=== PATIENT | male | born 1940 | race Caucasian/White ===

== ENCOUNTER → 2018-11-05 11:44 | Outpatient (CLI) | payer MEDICARE, SELFPAY ==
[2018-11-05 12:38] LABS: Add Manual Diff / Slide Review NO; Basophils Absolute Auto 100 /uL (0-100); Basophils Percent Auto 1.5 % (0-2); Eosinophils Absolute Auto 700 /uL (0-450); Eosinophils Percent Auto 14.3 % (2-4); Hematocrit 40.9 % (41-53); Hemoglobin 13.7 g/dL (13.5-17.5); Lymphocytes Absolute Auto 1400 /uL (1100-4500); Lymphocytes Percent Auto 27.3 % (25-40); Mean Corpuscular HGB Conc 33.5 % (30-36); Mean Corpuscular Hemoglobin 31.4 PG (26-34); Mean Corpuscular Volume 93.7 fL (80-100); Monocytes Absolute Auto 500 /uL (0-900); Monocytes Percent Auto 9.7 % (3-14); Neutrophils Absolute Auto 2400 /uL (1500-7000); Neutrophils Percent Auto 47.2 % (50-75); Platelet Count 279 X10^3/uL (150-400); Red Blood Cell Count 4.37 X10^6/uL (4.5-5.9); Red Cell Distribution Width 13.1 % (11.6-14.8)
[2018-11-05 13:01] LABS: Erythrocyte Sedimentation Rate 19 MM/HR (0-15)
[2018-11-05 13:26] LABS: Alanine Aminotransferase 33 IU/L (21-72); Albumin 4.4 g/dL (3.5-5.0); Albumin Globulin Ratio 1.4 (1.0-2.8); Alkaline Phosphatase 44 U/L (38-126); Aspartate Aminotransferase 27 IU/L (17-59); BUN Creatinine Ratio 14.5 (6-22); Blood Urea Nitrogen 16 mg/dL (9-20); Calcium 9.8 mg/dL (8.4-10.2); Carbon Dioxide 24 mmol/L (22-32); Chloride 105 mmol/L (98-107); Cholesterol 199 mg/dL (140-199); Estimated Glomerular Filt Rate > 60.0 mL/min (>60); Globulin 3.2 g/dL (1.7-4.1); Glucose 97 mg/dL (80-110); HDL Cholesterol 48 mg/dL (40-60); HEMOLYSIS < 15 (0-50); LDL Cholesterol Calculated 126 mg/dL (<100); Lipase 274 U/L (23-300); Potassium 4.6 mmol/L (3.4-5.1); Sodium 139 mmol/L (137-145); Total Protein 7.6 g/dL (6.3-8.2); Triglycerides 124 mg/dL (35-150)
== END ==
PROVIDERS: PCP Internal Medicine; Visit Provider Internal Medicine
DX: R10.30 Lower abdominal pain, unspecified (principal); Z00.00 Encounter for general adult medical examination without abnormal findings
CPT/HCPCS: 36415; 80053; 80061; 83690; 85025; 85651

== ENCOUNTER 2019-01-14 07:19 | Day surgery (SDC) | payer MEDICARE, SELFPAY ==
--- NOTE | 2019-01-14 | PATH_ITS ---
[facility] Accession Number: [id number] . 01 Material submitted: . PART A: ASCENDING COLON PART B: TRANSVERSE COLON PART C: BIOPSY AT 40CM X3 . 02 Diagnosis: A. Ascending Colon, Biopsy: Tubular adenoma. . B. Transverse Colon, Biopsy: Tubular adenoma. . C. Colon, 40 cm x3, Biopsies: Tubular adenoma in two of six fragments. [facility]/01/16/2019 . 02 Electronically signed: . Carissa Guerrero MD, Pathologist NPI- [id number] . 01 Gross description: . Part A: ASCENDING COLON: Received in formalin is 1 fragment(s) of duarte, soft tissue measuring 0.5 x 0.3 x 0.3 cm submitted entirely in 1 cassette(s) Part B: TRANSVERSE COLON: Received in formalin are multiple fragment(s) of duarte, soft tissue measuring 0.8 x 0.5 x 0.3 cm in aggregate submitted entirely in 1 cassette(s) Part C: BIOPSY AT 40CM X3: Received in formalin are multiple fragment(s) of duarte, soft tissue measuring 1.2 x 0.6 x 0.3 cm in aggregate submitted entirely in 1 cassette(s) /CKI /CKI . 02 Pathologist provided ICD-10: D12.2, D12.3, D12.6 . 02 CPT . 928820, [id number], [id number] Performed at: 01 [facility] [address] [place] [address], [place], [place] [id number] MD Fabricio Ferguson MD Phone: [phone] [facility]formed at: [facility] [address] [place], [place] [id number] MD Carissa Guerrero MD Phone: [phone]
[2019-01-14 07:35] VITALS: BP 126/75; PULSE 77; RESP 15; TEMP 36.6; O2SAT 98
[2019-01-14] MEDS: SODIUM CHLORIDE 0.9% 1,000 ML 100 ML IV (07:35)
[2019-01-14 07:36] VITALS: BMI 29.0
--- NOTE | 2019-01-14 08:08 | PM.HP.1 ---
History of Present Illness Date Patient Seen: 01/14/19 Time Patient Seen: 08:08 Chief complaint: [id number] Narrative: Patient is gentleman whose last colonoscopy was in 2000. He has had some change in his bowel habits. He is here for colonoscopy. Patient History Medical History Hypertension (Chronic) Surgical History History of nasal surgery (Resolved) History of prostate surgery (Resolved) Social History marital status: household members: spouse Smoking Status: Never smoker alcohol intake: never substance use type: does not use Family & Social History Social History: household members spouse Tobacco & Substance use: Smoking Status Never smoker alcohol intake never Meds Home Medications Medication Instructions Recorded Confirmed Type losartan 25 mg tablet 25 mg PO DAILY 12/17/18 01/14/19 History Allergies Allergy/AdvReac Type Severity Reaction Status Date / Time No Known Drug Allergies Allergy Verified 01/14/19 07:33 Review of Systems Review of Systems All systems reviewed & are unremarkable except as noted in HPI and below Exam Vital Signs (past 8 hours): - 01/14/19 07:35 Temperature 97.8 F Pulse Rate 77 Respiratory Rate 15 Blood Pressure 126/75 Pulse Oximetry 98 Oxygen Delivery Method Room Air Narrative Exam Narrative: Cooperative in no apparent distress. Lungs are clear. Heart regular rate and rhythm without murmur gallop abdomen is soft nontender without mass. Alert and oriented. Very hard of hearing. Assessment & Plan Assessment & Plan narrative: For screening colonoscopy. I have discussed procedure rationale with him. Risks of bleeding perforation discussed with him. He appeared to understand wishes to proceed
--- NOTE | 2019-01-14 08:12 | PM.PREOP ---
Pre-operative Note Interval Note History & Physical reviewed/Exam performed by Physician: Yes Changes to H&P: No ASA Class (for procedural sedation): II
[2019-01-14] MEDS: fentaNYL 250 MCG/5 ML INJ IV (08:13)
[2019-01-14] MEDS: MIDAZOLAM 5 MG/5 ML VIAL IV (08:14)
[2019-01-14 08:58] VITALS: BP 112/67; PULSE 64; RESP 16; TEMP 36.4; O2SAT 98
--- NOTE | 2019-01-14 08:58 | PM.OP.ENDO ---
Operative Date/Time/Diagnoses Date of procedure: 01/14/19 Time of procedure: 08:58 Pre-op diagnosis: Change in bowel habits. Screening exam. Last exam 2000. Post-op diagnosis: same (Multiple small polyps.) Procedure & Clinicians Study performed: Colonoscopy with cold biopsy Same procedure as scheduled: Yes Indications: Screening Surgeon: Devin Melgar Procedure Notes SCOAP/Timeout: Performed Procedure in detail: The patient was placed in the left lateral decubitus position and underwent IV sedation directed by the surgeon consisting of fentanyl and Versed. Digital exam was remarkable for increased sphincter tone.. The scope was inserted and advanced through the rectum into the sigmoid, descending, transverse, and ascending colon. There were large number of diverticula noted in the sigmoid colon with some mild stricture in tortuosity. The cecum was reached identified by the ileocecal valve and the appendiceal opening. The ileocecal valve was successfully cannulated. The terminal ileum was normal in appearance. The scope was gradually brought out. Polyps were found at the ascending colon, the transverse colon, and 3 polyps were found at the region around 40 cm. The scope ultimately was retroflexed in the rectum. The appearance was normal except for perhaps some very mild proctitis.. The scope was removed and the patient tolerated the procedure well. Prep was excellent. Scope withdrawal time: 13 min Sedation minutes: 24 Findings: diverticulosis (Sigmoid) and polyp (Multiple) Specimen(s): other (Polyps) Complications: none Recommendations: Colonscopy in 5 years (If in good health) Follow up: as needed Disposition: PACU
[2019-01-14 09:03] VITALS: BP 118/72; PULSE 69; RESP 21; O2SAT 98
[2019-01-14 09:10] VITALS: BP 106/71; PULSE 67; RESP 11; O2SAT 95
[2019-01-14 09:15] VITALS: BP 105/72; PULSE 68; RESP 13; TEMP 36.4; O2SAT 96
[2019-01-14 09:50] VITALS: BP 108/70; PULSE 63; RESP 15; TEMP 36.3; O2SAT 95
== END 2019-01-14 09:54 | disposition home or self-care (01) ==
PROVIDERS: PCP Internal Medicine; Visit Provider Specialist
PROC: 0DJD8ZZ Inspection of Lower Intestinal Tract, Via Natural or Artificial Opening Endoscopic (ICD-10-PCS; CPT 45378; principal; 2019-01-14 07:45)
DX: K57.30 Diverticulosis of large intestine without perforation or abscess without bleeding (principal); I10 Essential (primary) hypertension; D12.2 Benign neoplasm of ascending colon; D12.3 Benign neoplasm of transverse colon; D12.6 Benign neoplasm of colon, unspecified
CPT/HCPCS: 45380; 88305; 99152; 99153; J2250; J3010

== ENCOUNTER → 2019-06-02 12:16 | Outpatient (CLI) | payer MEDICARE, SELFPAY | PROVIDERS: PCP Internal Medicine; Visit Provider Internal Medicine | DX: K52.9 Noninfective gastroenteritis and colitis, unspecified (principal) | CPT/HCPCS: 36415; 87045; 87046; 87147; 87177; 87205; 87329; 87899 ==

== ENCOUNTER 2022-06-05 15:19 | Inpatient (IN) | payer MEDICARE, SELFPAY ==
[2022-06-05] VITALS (20 sets, daily range): BP systolic 148–204; BP diastolic 71–104; PULSE 68–88; RESP 12–22; TEMP 36.6–36.9; O2SAT 96–99; BMI 29.2
--- NOTE | 2022-06-05 15:46 | ED.CHESTPAIN ---
HPI - Chest Pain <Danica Duarte DO - Last Filed: 06/05/22 19:05> General Chief Complaint: Chest Pain Stated Complaint: sob/chest pain Time Seen by Provider: 06/05/22 15:33 Source: patient Mode of arrival: Ambulatory Limitations: no limitations History of Present Illness HPI narrative: Patient is a 81-year-old male presents with his chest discomfort. He says since he got his booster COVID vaccine is a few months ago he has had some chest discomfort with activity. He says it has happened to him about 5 different times always resolves with rest. Today he in his grandson were caring a piece of plywood up the stairs he felt some chest heaviness it kind of goes into his jaw. He has to stop and rest and it goes away. He otherwise has no shortness of breath. He has no known coronary artery disease but does have hypertension. Related Data Home Medications Medication Instructions Recorded Confirmed losartan 50 mg tablet 50 mg PO DAILY 06/05/22 06/05/22 Allergies Allergy/AdvReac Type Severity Reaction Status Date / Time No Known Drug Allergies Allergy Verified 06/05/22 15:46 Review of Systems <Danica Duarte DO - Last Filed: 06/05/22 19:05> Review of Systems Narrative: GENERAL: Denies chills, fatigue, malaise, fever, sweats, travel HEENT: Denies sinus pain, ear pain, sore throat, difficulty swallowing, neck pain RESPIRATORY: Denies dyspnea, cough, wheezing, hemoptysis, sputum. CARDIOVASCULAR: Denies chest pain, palpitations, orthopnea, edema GASTROINTESTINAL: Denies nausea, vomiting, abdominal pain, diarrhea, constipation, melena. : Denies dysuria, frequency, incontinence, hematuria, urinary retention, flank pain. MUSCULOSKELETAL: Denies weakness, joint pain, or bony pain SKIN: No rash, no erythema, no pruritus NEUROLOGIC: Denies weakness, dizziness, headache, numbness, change in speech, confusion PSYCHIATRIC: No concerning psychosocial issues. 12 point review of systems is negative except for those stated above and HPI Patient History <Danica Duarte DO - Last Filed: 06/05/22 19:05> Medical History History of prostate cancer Hypertension Overweight (BMI 25.0-29.9) Surgical History History of nasal surgery History of prostate surgery Family History (Reviewed 06/05/22 @ 21:21 by [facility]) Mother Overdose Father Aortic aneurysm and dissection Social History marital status: household members: spouse Smoking Status: Former smoker alcohol intake: never substance use type: does not use Smoking Status: Former smoker alcohol intake frequency: 0-2 drinks per day Substance Use Type: does not use Exam <Danica uDarte DO - Last Filed: 06/05/22 19:05> Initial Vital Signs Initial Vital Signs: Vital Signs Temperature 98.4 F 06/05/22 15:25 Pulse Rate 77 06/05/22 15:25 Respiratory Rate 18 06/05/22 15:25 Blood Pressure 178/77 H 06/05/22 15:25 Pulse Oximetry 96 06/05/22 15:25 Oxygen Delivery Method 06/05/22 15:25 GENERAL: Alert very pleasant 81-year-old and in no acute distress. HEENT: Head atraumatic,EOMI, pupils reactive, face symmetric, moist mucous membranes CARDIOVASCULAR: Regular rate and rhythm without murmurs, rubs or gallops. RESPIRATORY: Breath sounds equal bilaterally, no wheezes rales or rhonchi. ABDOMEN: Soft, nontender. Normoactive bowel sounds all 4 quadrants. No guarding or rebound. EXTREMITIES: Normal range of motion, no clubbing or edema. Neurovascularly intact NEUROLOGICAL: Alert and oriented x4.Normal gait and speech. SKIN: Warm, dry, no laceration, no petechiae, no rashes or lesions. <Tiff Santoyo DO - Last Filed: 06/06/22 01:21> Initial Vital Signs Initial Vital Signs: Vital Signs Temperature 98.4 F 06/05/22 15:25 Pulse Rate 77 06/05/22 15:25 Respiratory Rate 18 06/05/22 15:25 Blood Pressure 178/77 H 06/05/22 15:25 Pulse Oximetry 96 06/05/22 15:25 Oxygen Delivery Method 06/05/22 15:25 Scores <DO Krysten Ahn Last Filed: 06/05/22 19:05> HEART Score Heart Score history: Highly Suspicious Heart Score EKG: Normal Heart Score Age: > or = 65 years old Heart Score risk factors: 1-2 risk factors Heart Score troponin: < or = to normal limit Heart Score Total: 5 <Tiff Santyoo DO - Last Filed: 06/06/22 01:21> HEART Score Heart Score Total: 5 Course <Danica Duarte DO - Last Filed: 06/05/22 19:05> Orders Ordered: ED Orders 06/05/22 17:28 Trop I [Troponin I] Stat 06/05/22 18:25 COVID19 -Nasal RAPID/Pre-Proc Stat Acetaminophen (Acetaminophen 325 Mg Tablet) 650 mg PO Q6HR PRN PRN Reason: Fever/Mild Pain (1-3) Al Hydrox/Mg Hydrox/Simethicone (Mag Hydrox/Alum/Simeth 30 Ml Udc) 30 ml PO Q6HR PRN PRN Reason: Dyspepsia Aspirin (Aspirin Ec 325 Mg Tablet) 325 mg PO DAILY [facility] Atorvastatin Calcium (Atorvastatin 20 Mg Tablet) 40 mg PO BEDTIME [facility] Last Admin: 06/05/22 21:21 Dose: 40 mg Documented By: LINDSEY Enoxaparin Sodium (Enoxaparin 40 Mg/0.4 Ml Syringe) 40 mg SUBCUT DAILY [facility] Losartan Potassium (Losartan 25 Mg Tablet) 50 mg PO DAILY [facility] Morphine Sulfate (Morphine 2 Mg/Ml Inj) 2 mg IV Q5MIN PRN PRN Reason: Chest Pain Nitroglycerin (Nitroglycerin 0.4 Mg Sl Tab) 0.4 mg SL [id number] PRN PRN Reason: Chest Pain Ondansetron HCl (Ondansetron 4 Mg Odt) 4 mg PO Q8HR PRN PRN Reason: Nausea And Vomiting Sennosides (Sennosides 8.6 Mg Tablet) 17.2 mg PO BEDTIME [facility] Last Admin: 06/05/22 22:24 Dose: Not Given Documented By: LINDSEY Discontinued Medications Aspirin (Aspirin 81 Mg Chew Tab) 324 mg PO NOW ONE Stop: 06/05/22 18:09 Last Admin: 06/05/22 18:21 Dose: 324 mg Documented By: TRACY Losartan Potassium (Losartan 25 Mg Tablet) 25 mg PO DAILY [facility] Last Admin: 06/05/22 22:24 Dose: Not Given Documented By: LINDSEY Metoprolol Tartrate (Metoprolol Tartrate 5 Mg/5 Ml Inj) 5 mg IV Q5M [facility] Stop: 06/05/22 20:11 Last Admin: 06/05/22 22:24 Dose: Not Given Documented By: Admin: 06/05/22 22:23 Dose: Not Given Documented By: Admin: 06/05/22 22:23 Dose: Not Given Documented By: Vital Signs Vital signs: Vital Signs - 8 hr 06/05/22 17:30 06/05/22 17:30 06/05/22 18:00 Pulse Rate 77 Respiratory Rate 12 Blood Pressure 183/84 H 204/94 H Pulse Oximetry 99 06/05/22 18:00 06/05/22 18:18 06/05/22 18:18 Pulse Rate 82 87 Respiratory Rate 21 20 Blood Pressure 181/93 H Pulse Oximetry 98 98 06/05/22 18:30 06/05/22 18:30 Pulse Rate 82 Respiratory Rate 18 Blood Pressure 197/101 H Pulse Oximetry 97 <Tiff Santoyo, - Last Filed: 06/06/22 01:21> Orders Ordered: ED Orders 06/05/22 17:28 Trop I [Troponin I] Stat 06/05/22 18:25 COVID19 -Nasal RAPID/Pre-Proc Stat Acetaminophen (Acetaminophen 325 Mg Tablet) 650 mg PO Q6HR PRN PRN Reason: Fever/Mild Pain (1-3) Al Hydrox/Mg Hydrox/Simethicone (Mag Hydrox/Alum/Simeth 30 Ml Udc) 30 ml PO Q6HR PRN PRN Reason: Dyspepsia Aspirin (Aspirin Ec 325 Mg Tablet) 325 mg PO DAILY [facility] Atorvastatin Calcium (Atorvastatin 20 Mg Tablet) 40 mg PO BEDTIME [facility] Last Admin: 06/05/22 21:21 Dose: 40 mg Documented By: Enoxaparin Sodium (Enoxaparin 40 Mg/0.4 Ml Syringe) 40 mg SUBCUT DAILY [facility] Losartan Potassium (Losartan 25 Mg Tablet) 50 mg PO DAILY [facility] Morphine Sulfate (Morphine 2 Mg/Ml Inj) 2 mg IV Q5MIN PRN PRN Reason: Chest Pain Nitroglycerin (Nitroglycerin 0.4 Mg Sl Tab) 0.4 mg SL [id number] PRN PRN Reason: Chest Pain Ondansetron HCl (Ondansetron 4 Mg Odt) 4 mg PO Q8HR PRN PRN Reason: Nausea And Vomiting Sennosides (Sennosides 8.6 Mg Tablet) 17.2 mg PO BEDTIME [facility] Last Admin: 06/05/22 22:24 Dose: Not Given Documented By: LINDSEY Discontinued Medications Aspirin (Aspirin 81 Mg Chew Tab) 324 mg PO NOW ONE Stop: 06/05/22 18:09 Last Admin: 06/05/22 18:21 Dose: 324 mg Documented By: TRACY Losartan Potassium (Losartan 25 Mg Tablet) 25 mg PO DAILY [facility] Last Admin: 06/05/22 22:24 Dose: Not Given Documented By: Metoprolol Tartrate (Metoprolol Tartrate 5 Mg/5 Ml Inj) 5 mg IV Q5M [facility] Stop: 06/05/22 20:11 Last Admin: 06/05/22 22:24 Dose: Not Given Documented By: Admin: 06/05/22 22:23 Dose: Not Given Documented By: Admin: 06/05/22 22:23 Dose: Not Given Documented By: LINDSEY Vital Signs Vital signs: Vital Signs - 8 hr 06/05/22 17:30 06/05/22 17:30 06/05/22 18:00 Pulse Rate 77 Respiratory Rate 12 Blood Pressure 183/84 H 204/94 H Pulse Oximetry 99 06/05/22 18:00 06/05/22 18:18 06/05/22 18:18 Pulse Rate 82 87 Respiratory Rate 21 20 Blood Pressure 181/93 H Pulse Oximetry 98 98 06/05/22 18:30 06/05/22 18:30 Pulse Rate 82 Respiratory Rate 18 Blood Pressure 197/101 H Pulse Oximetry 97 MDM - Chest Pain <Danica Duarte DO - Last Filed: 06/05/22 19:05> Lab Data Result diagrams: 06/05/22 15:31 06/05/22 15:31 Labs: Lab Results 06/05/22 06/05/22 06/05/22 Range/Units 15:31 15:31 15:31 WBC 6.2 (4.5-11.0) X10^3/uL RBC 3.92 L (4.5-5.9) X10^6/uL Hgb 12.8 L (13.5-17.5) g/dL Hct 36.5 L (41-53) % MCV 93.1 (80-100) fL MCH 32.6 (26-34) PG MCHC 35.0 (30-36) % RDW 13.3 (11.6-14.8) % Plt Count 217 (150-400) X10^3/uL Neut % (Auto) 65.8 (50-75) % Lymph % (Auto) 18.1 L (25-40) % [place] % (Auto) 8.1 (3-14) % Eos % (Auto) 7.0 H (2-4) % Baso % (Auto) 1.0 (0-2) % Neut # (Auto) 4100 (4138-5899) /uL Lymph # (Auto) 1100 (4644-9376) /uL [place] # (Auto) 500 (0-900) /uL Eos # (Auto) 400 (0-450) /uL Baso # (Auto) 100 (0-100) /uL Sodium 140 (137-145) mmol/L Potassium 4.5 (3.4-5.1) mmol/L Chloride 106 (98-107) mmol/L Carbon Dioxide 23 (22-32) mmol/L BUN 17 (9-20) mg/dL Creatinine 1.02 (0.66-1.25) mg/dL Estimated GFR > 60 (>60) mL/min BUN/Creatinine Ratio 16.7 (6-22) Glucose 101 (80-110) mg/dL Calcium 9.4 (8.4-10.2) mg/dL Magnesium 1.9 (1.6-2.3) mg/dL Total Bilirubin 0.6 (0.2-1.3) mg/dL AST 35 (17-59) IU/L ALT 19 (<50) IU/L Alkaline Phosphatase 40 (38-126) U/L Total Creatine Kinase 178 H (55-170) U/L CK-MB (CK-2) 2.31 (<2.37) ng/mL CK-MB (CK-2) Rel Index 1.3 L (1.5-5.0) % Troponin I 0.046 H (0.01-0.034) ng/mL NT-Pro-B Natriuret Pep (<450) pg/mL Total Protein 7.8 (6.3-8.2) g/dL Albumin 4.4 (3.5-5.0) g/dL Globulin 3.4 (1.7-4.1) g/dL Albumin/Globulin Ratio 1.3 (1.0-2.8) Lipase 110 (23-300) U/L SARS-CoV-2 (PCR) Negative (Negative) 06/05/22 06/05/22 06/05/22 Range/Units 15:31 17:28 18:25 WBC (4.5-11.0) X10^3/uL RBC (4.5-5.9) X10^6/uL Hgb (13.5-17.5) g/dL Hct (41-53) % MCV (80-100) fL MCH (26-34) PG MCHC (30-36) % RDW (11.6-14.8) % Plt Count (150-400) X10^3/uL Neut % (Auto) (50-75) % Lymph % (Auto) (25-40) % [place] % (Auto) (3-14) % Eos % (Auto) (2-4) % Baso % (Auto) (0-2) % Neut # (Auto) (8411-9722) /uL Lymph # (Auto) (3665-1633) /uL [place] # (Auto) (0-900) /uL Eos # (Auto) (0-450) /uL Baso # (Auto) (0-100) /uL Sodium (137-145) mmol/L Potassium (3.4-5.1) mmol/L Chloride (98-107) mmol/L Carbon Dioxide (22-32) mmol/L BUN (9-20) mg/dL Creatinine (0.66-1.25) mg/dL Estimated GFR (>60) mL/min BUN/Creatinine Ratio (6-22) Glucose (80-110) mg/dL Calcium (8.4-10.2) mg/dL Magnesium (1.6-2.3) mg/dL Total Bilirubin (0.2-1.3) mg/dL AST (17-59) IU/L ALT (<50) IU/L Alkaline Phosphatase (38-126) U/L Total Creatine Kinase (55-170) U/L CK-MB (CK-2) (<2.37) ng/mL CK-MB (CK-2) Rel Index (1.5-5.0) % Troponin I 0.075 H (0.01-0.034) ng/mL NT-Pro-B Natriuret Pep 716 H (<450) pg/mL Total Protein (6.3-8.2) g/dL Albumin (3.5-5.0) g/dL Globulin (1.7-4.1) g/dL Albumin/Globulin Ratio (1.0-2.8) Lipase (23-300) U/L SARS-CoV-2 (PCR) Negative (Negative) Imaging Data Chest x-ray: Radiologist's Impression: HILDA Dolan [id number] XRay Report Signed Patient: Tao Ledbetter MR#: [id number] : 1940 Acct:[id number] Age/Sex: 81 / M Date of Service: 06/05/22 Loc: ED Accession Number: [id number] ?? Procedure: XR chest 1V Ordering Provider: Danica Duarte D.O. PROCEDURE:? XR CHEST 1V ? INDICATIONS:? chest pain ? TECHNIQUE:? One view of the chest was acquired.? ? COMPARISON:? [facility], , CHEST 2 VIEW, 05/26/2009, 13:27. ? FINDINGS:? ? Surgical changes and devices:? None.? ? Lungs and pleura:? Lungs are clear.? No pleural effusions or pneumothorax.? Lung volumes are low ? Mediastinum:? Mediastinal contours appear normal.? Heart size is normal.? ? Bones and chest wall:? No suspicious bony lesions.? Overlying soft tissues appear unremarkable.? ? IMPRESSION:? No acute radiographic abnormality.? Lung volumes are low.? ? ? Dictated by: Aurelio Agarwal M.D. on 06/05/2022 at 16:08 ? ? Approved by: Aurelio Agarwal M.D. on 06/05/2022 at 16:08 ? ECG Data Interpretation: Normal sinus rhythm rate 80 p.r. interval 154 QRS [address] changes PVCs noted MDM Narrative Medical decision making narrative: Patient's symptoms are certainly concerning for cardiac. He is found to have rising indeterminate troponins. No EKG changes. He is not having any chest discomfort here in the emergency department. Dr. Bruno, Accepts patient. <Tiff Santoyo, DO - Last Filed: 06/06/22 01:21> Lab Data Labs: Lab Results 06/05/22 06/05/22 06/05/22 Range/Units 15:31 15:31 15:31 WBC 6.2 (4.5-11.0) X10^3/uL RBC 3.92 L (4.5-5.9) X10^6/uL Hgb 12.8 L (13.5-17.5) g/dL Hct 36.5 L (41-53) % MCV 93.1 (80-100) fL MCH 32.6 (26-34) PG MCHC 35.0 (30-36) % RDW 13.3 (11.6-14.8) % Plt Count 217 (150-400) X10^3/uL Neut % (Auto) 65.8 (50-75) % Lymph % (Auto) 18.1 L (25-40) % [place] % (Auto) 8.1 (3-14) % Eos % (Auto) 7.0 H (2-4) % Baso % (Auto) 1.0 (0-2) % Neut # (Auto) 4100 (9261-6425) /uL Lymph # (Auto) 1100 (3439-9062) /uL [place] # (Auto) 500 (0-900) /uL Eos # (Auto) 400 (0-450) /uL Baso # (Auto) 100 (0-100) /uL Sodium 140 (137-145) mmol/L Potassium 4.5 (3.4-5.1) mmol/L Chloride 106 (98-107) mmol/L Carbon Dioxide 23 (22-32) mmol/L BUN 17 (9-20) mg/dL Creatinine 1.02 (0.66-1.25) mg/dL Estimated GFR > 60 (>60) mL/min BUN/Creatinine Ratio 16.7 (6-22) Glucose 101 (80-110) mg/dL Calcium 9.4 (8.4-10.2) mg/dL Magnesium 1.9 (1.6-2.3) mg/dL Total Bilirubin 0.6 (0.2-1.3) mg/dL AST 35 (17-59) IU/L ALT 19 (<50) IU/L Alkaline Phosphatase 40 (38-126) U/L Total Creatine Kinase 178 H (55-170) U/L CK-MB (CK-2) 2.31 (<2.37) ng/mL CK-MB (CK-2) Rel Index 1.3 L (1.5-5.0) % Troponin I 0.046 H (0.01-0.034) ng/mL NT-Pro-B Natriuret Pep (<450) pg/mL Total Protein 7.8 (6.3-8.2) g/dL Albumin 4.4 (3.5-5.0) g/dL Globulin 3.4 (1.7-4.1) g/dL Albumin/Globulin Ratio 1.3 (1.0-2.8) Lipase 110 (23-300) U/L SARS-CoV-2 (PCR) Negative (Negative) 06/05/22 06/05/22 06/05/22 Range/Units 15:31 17:28 18:25 WBC (4.5-11.0) X10^3/uL RBC (4.5-5.9) X10^6/uL Hgb (13.5-17.5) g/dL Hct (41-53) % MCV (80-100) fL MCH (26-34) PG MCHC (30-36) % RDW (11.6-14.8) % Plt Count (150-400) X10^3/uL Neut % (Auto) (50-75) % Lymph % (Auto) (25-40) % [place] % (Auto) (3-14) % Eos % (Auto) (2-4) % Baso % (Auto) (0-2) % Neut # (Auto) (0135-6131) /uL Lymph # (Auto) (6057-0875) /uL [place] # (Auto) (0-900) /uL Eos # (Auto) (0-450) /uL Baso # (Auto) (0-100) /uL Sodium (137-145) mmol/L Potassium (3.4-5.1) mmol/L Chloride (98-107) mmol/L Carbon Dioxide (22-32) mmol/L BUN (9-20) mg/dL Creatinine (0.66-1.25) mg/dL Estimated GFR (>60) mL/min BUN/Creatinine Ratio (6-22) Glucose (80-110) mg/dL Calcium (8.4-10.2) mg/dL Magnesium (1.6-2.3) mg/dL Total Bilirubin (0.2-1.3) mg/dL AST (17-59) IU/L ALT (<50) IU/L Alkaline Phosphatase (38-126) U/L Total Creatine Kinase (55-170) U/L CK-MB (CK-2) (<2.37) ng/mL CK-MB (CK-2) Rel Index (1.5-5.0) % Troponin I 0.075 H (0.01-0.034) ng/mL NT-Pro-B Natriuret Pep 716 H (<450) pg/mL Total Protein (6.3-8.2) g/dL Albumin (3.5-5.0) g/dL Globulin (1.7-4.1) g/dL Albumin/Globulin Ratio (1.0-2.8) Lipase (23-300) U/L SARS-CoV-2 (PCR) Negative (Negative) Discharge Plan Departure Patient Disposition: Admitted as Observation Clinical Impression: Chest pain Admit Date/Time: 06/05/22 18:35 Admit Provider: Jarrett Bruno <Tiff Santoyo DO - Last Filed: 06/06/22 01:21> Sign Out Provider Sign Out Attestation: Patient was not seen by myself. Patient admitted to hospitalist.
--- NOTE | 2022-06-05 15:47 | DI.RAD.S_ITS ---
PROCEDURE: XR CHEST 1V INDICATIONS: chest pain TECHNIQUE: One view of the chest was acquired. COMPARISON: [facility], , CHEST 2 VIEW, 05/26/2009, 13:27. FINDINGS: Surgical changes and devices: None. Lungs and pleura: Lungs are clear. No pleural effusions or pneumothorax. Lung volumes are low Mediastinum: Mediastinal contours appear normal. Heart size is normal. Bones and chest wall: No suspicious bony lesions. Overlying soft tissues appear unremarkable. IMPRESSION: No acute radiographic abnormality. Lung volumes are low. Dictated by: Aurelio Agarwal M.D. on 06/05/2022 at 16:08 Approved by: Aurelio Agarwal M.D. on 06/05/2022 at 16:08
[2022-06-05 16:00] LABS: Add Manual Diff / Slide Review NO; Basophils Absolute Auto 100 /uL (0-100); Eosinophils Absolute Auto 400 /uL (0-450); Hematocrit 36.5 % (41-53); Hemoglobin 12.8 g/dL (13.5-17.5); Lymphocytes Absolute Auto 1100 /uL (1100-4500); Lymphocytes Percent Auto 18.1 % (25-40); Mean Corpuscular Hemoglobin 32.6 PG (26-34); Mean Corpuscular Volume 93.1 fL (80-100); Monocytes Absolute Auto 500 /uL (0-900); Monocytes Percent Auto 8.1 % (3-14); Neutrophils Absolute Auto 4100 /uL (1500-7000); Neutrophils Percent Auto 65.8 % (50-75); Platelet Count 217 X10^3/uL (150-400); Red Blood Cell Count 3.92 X10^6/uL (4.5-5.9); Red Cell Distribution Width 13.3 % (11.6-14.8); White Blood Cell Count 6.2 X10^3/uL (4.5-11.0)
[2022-06-05 16:07] LABS: Alanine Aminotransferase 19 IU/L (<50); Albumin 4.4 g/dL (3.5-5.0); Albumin Globulin Ratio 1.3 (1.0-2.8); Alkaline Phosphatase 40 U/L (38-126); Aspartate Aminotransferase 35 IU/L (17-59); BUN Creatinine Ratio 16.7 (6-22); Bilirubin Total 0.6 mg/dL (0.2-1.3); Blood Urea Nitrogen 17 mg/dL (9-20); Calcium 9.4 mg/dL (8.4-10.2); Carbon Dioxide 23 mmol/L (22-32); Chloride 106 mmol/L (98-107); Creatine Kinase 178 U/L (55-170); Estimated Glomerular Filt Rate > 60 mL/min (>60); Globulin 3.4 g/dL (1.7-4.1); Glucose 101 mg/dL (80-110); HEMOLYSIS 28 (0-50); Lipase 110 U/L (23-300); Magnesium 1.9 mg/dL (1.6-2.3); Potassium 4.5 mmol/L (3.4-5.1); Sodium 140 mmol/L (137-145); Total Protein 7.8 g/dL (6.3-8.2)
[2022-06-05 16:09] LABS: COVID19 -Nasal RAPID Negative (Negative)
[2022-06-05 16:18] LABS: Troponin I 0.046 ng/mL (0.01-0.034)
[2022-06-05 16:22] LABS: CKMB % Relative Index 1.3 % (1.5-5.0); Creatine Kinase MB 2.31 ng/mL (<2.37)
[2022-06-05 18:09] LABS: Troponin I 0.075 ng/mL (0.01-0.034)
[2022-06-05] MEDS: ASPIRIN 81 MG CHEW TAB 324 MG PO (18:21)
[2022-06-05 18:51] LABS: COVID19 -Nasal RAPID Negative (Negative)
--- NOTE | 2022-06-05 18:52 | PC.NURSE ---
Pt given sandwich, apple sauce and cheese.
--- NOTE | 2022-06-05 19:47 | DI.ECHO.S_ITS ---
[place] +---------+ [facility] +---------+ : : [address] : : : : [id number] : : : : Phone: [phone] Echocardiogram Report + + :Name: RADHA MOHAMUD Study Date: 06/06/2022 Height: 71 in : :[facility] ReadingLocation: Weight: 210 lb : : Gender: Male BSA: 2.2 m2 : :: 1940 Age: 81 yrs BP: 168/79 mmHg: :Reason For Study: CHEST PAIN, MYOCARDIAL INJURY : :Ordering Physician: URMILA, : :JACKIE Performed By: Nida Fall : :Referring: JACKIE KEARNS : + + Interpretation Summary The patient was in sinus rhythm with heart rates between 59-71 bpm during the exam. Hypertensive during exam The left ventricle is mildly dilated. There is mild global hypokinesis of the left ventricle. The ejection fraction is estimated to be 40-45%. Diastolic parameters suggest a relaxation abnormality of the left ventricle, consistent with probable normal filling pressures. The left atrium is mildly dilated. There is mild aortic regurgitation. There is mild mitral regurgitation. No prior study for comparison Procedure: A two-dimensional transthoracic echocardiogram with color flow and Doppler was performed. The study quality was technically adequate. There is no prior echocardiogram noted for this patient. The patient was in sinus rhythm with heart rates between 59-71 bpm during the exam. Hypertensive during exam. Left Ventricle: There is normal left ventricular wall thickness. The left ventricle is mildly dilated. The estimated left ventricular end diastolic volume is 132 ml. The ejection fraction is estimated to be 40-45%. There is mild global hypokinesis of the left ventricle. Diastolic parameters suggest a relaxation abnormality of the left ventricle, consistent with probable normal filling pressures. Right Ventricle: The right ventricle is normal in size and function. Atria: The left atrium is mildly dilated. Right atrial size is normal. There is no Doppler evidence for an interatrial shunt. Mitral Valve: The mitral valve leaflets appear mildly thickened, but open well. There is mild mitral regurgitation. Aortic Valve: The aortic valve is trileaflet. The aortic valve opens well. There is no aortic valve stenosis. There is mild aortic regurgitation. Tricuspid Valve: The tricuspid valve is normal in structure and function. There is mild tricuspid regurgitation. Pulmonic Valve: The pulmonic valve leaflets are thin and pliable; valve motion is normal. There is mild pulmonic regurgitation. Great Vessels: The aortic root is normal size. The dimensions of the ascending aorta are normal. The inferior vena cava was not visualized. Pericardium/ Pleura There is no pericardial effusion. There is no pleural effusion. MMode/2D Measurements & Calculations LVIDd: 6.0 cm LVOT diam: 2.2 cm LVIDs: 5.1 cm Ao root diam: 4.0 cm FS: 15.3 % asc Aorta Diam: 3.8 cm EPSS: 2.0 cm IVSd: 0.86 cm LVPWd: 0.88 cm LV stapleton. diameter/BSA (cm/m^2): 2.8 LV sys. diameter/BSA (cm/m^2): 2.4 LA A2 area: 22.9 cm2 RA long axis: 5.7 cm LA A4 area: 19.0 cm2 RA area: 15.7 cm2 LA length (vol): 4.9 cm RA vol: 37.0 ml LA vol: 75.9 ml RA : 17.2 ml/m2 LA vol index: 35.2 ml/m2 RVD1 (basal): 3.9 cm RVD2 (mid): 3.0 cm TAPSE: 1.9 cm Doppler Measurements & Calculations Ao V2 max: 98.7 cm/sec LVOT Max Masood: 67.4 cm/sec Ao V2 mean: 71.6 cm/sec LV V1 max P.8 mmHg Ao max P.9 mmHg LV V1 VTI: 16.3 cm Ao mean P.3 mmHg TRUNG(I,D): 2.7 cm2 Ao V2 VTI: 23.4 cm TRUNG(V,D): 2.6 cm2 sev ratio: 0.69 TRUNG indexed to BSA (cm^2/m^2): 1.2 MV E max masood: 67.1 cm/sec TR max masood: 229.6 cm/sec MV A max masood: 114.6 cm/sec TR max P.1 mmHg MV E/A: 0.59 PA V2 max: 76.3 cm/sec Med Peak E' Masood: 3.2 cm/sec PA V2 mean: 54.8 cm/sec E/E' med: 21.0 PA mean P.3 mmHg Lat Peak E' Masood: 4.7 cm/sec PA pr(Accel): 24.2 mmHg E/E' lat: 14.2 E/e' average: 17.6 MV dec time: 0.29 sec SV(LVOT): 62.5 ml Reading Physician:JARETT
[2022-06-05 20:55] LABS: NT-proBNP (BNP-Adult 18+) 716 pg/mL (<450)
--- NOTE | 2022-06-05 21:12 | PM.HP.1 ---
History of Present Illness History of Present Illness Date Patient Seen: 06/05/22 Time Patient Seen: 19:55 Chief complaint: sob/chest pain Narrative: Tao Krueger is a delightful 81-year-old male with a history of prostate cancer over 20 years ago, hypertension and overweight who presented to the ED complaining of chest discomfort.? Which he reports began following getting his booster COVID vaccine in late February. The patient reports the chest discomfort is a steady dull ache that is brought on with activity can radiate up to his jaw experiences some mild nausea with no shortness of breath no diaphoresis, numbness, tingling, changes in vision, headache, and resolves with rest. This chest discomfort has been consistently occurring any time he has been doing physical labor, which he has been working on his house going up and down ladders doing yd work very vigorous activity for himself. He has no known coronary artery disease or pulmonary disease. Patient takes only losartan for hypertension, has never had any cardiac workup or evaluation. Patient denies recent illness injury or trauma, falls, fever, body aches, chills, nausea, vomiting, diarrhea, abdominal pain, swelling of feet hands or legs, balance or coordination issues. Patient is resting comfortably in bed, faughter at bedside, is quite alert on orientated converses easily and in no distress and no symptoms at the time of admit. Patient's admitting vitals temp 98.4?, was slightly hypertensive in the ED 204/94, in room 168/79, HR 82, R 21, O2 saturation 98% on room air. Patient's hemoglobin 12.8, hematocrit 36.5, the rest of the patient's chemistry and liver panels are unremarkable, total creatinine kinase 178, CK-MB RI 1.3, patient's initial troponin 0.046, 2nd troponin 0.075. Patient had a heart score of 5, patient's chest x-ray demonstrated no acute cardiopulmonary processes, patient's EKG NSR at a rate of [address] changes occasional PVCs noted. Patient admitted for chest pain, myocardial injury, hypertensive urgency. Patient History Medical History History of prostate cancer Hypertension Overweight (BMI 25.0-29.9) Surgical History (Reviewed 06/05/22 @ 21:20 by [facility] History of nasal surgery History of prostate surgery Family & Social History Family History Mother Overdose Father Aortic aneurysm and dissection Social History: household members spouse Prior Living Arrangements House Safety & Behavioral: Feels Safe in Current Yes Environment Been Physically Hurt or No Threatened By a Person Tobacco & Substance use: Tobacco type cigarettes Smoking Status Former smoker -patient smoked for 20 years and quit in 1982 alcohol intake never alcohol intake frequency patient quit drinking 54 years ago Substance Use Type does not use Meds Home Medications and Allergies Home Medications Medication Instructions Recorded Confirmed Type losartan 50 mg tablet 50 mg PO DAILY 06/05/22 06/05/22 History Allergies Allergy/AdvReac Type Severity Reaction Status Date / Time No Known Drug Allergies Allergy Verified 06/05/22 15:46 Review of Systems Review of Systems Narrative: All 12 point systems reviewed with the patient and are negative except otherwise documented. Exam Vital Signs (past 8 hours): - 06/05/22 15:25 06/05/22 15:25 06/05/22 15:27 Temperature 98.4 F Pulse Rate 77 84 81 Respiratory Rate 18 21 Blood Pressure 178/77 H Pulse Oximetry 96 96 Oxygen Delivery Method Room Air Oxygen Flow Rate 06/05/22 15:27 06/05/22 15:30 06/05/22 15:36 Temperature Pulse Rate 78 77 Respiratory Rate 15 18 Blood Pressure 178/77 H Pulse Oximetry 97 96 Oxygen Delivery Method Oxygen Flow Rate 06/05/22 15:36 06/05/22 16:00 06/05/22 16:01 Temperature Pulse Rate 76 78 Respiratory Rate 22 17 Blood Pressure 148/87 H Pulse Oximetry 97 97 Oxygen Delivery Method Oxygen Flow Rate 06/05/22 16:01 06/05/22 16:30 06/05/22 16:31 Temperature Pulse Rate 78 76 Respiratory Rate 22 18 Blood Pressure 181/71 H Pulse Oximetry 96 97 Oxygen Delivery Method Oxygen Flow Rate 06/05/22 16:31 06/05/22 17:00 06/05/22 17:01 Temperature Pulse Rate 77 77 Respiratory Rate 15 22 Blood Pressure 180/79 H Pulse Oximetry 98 98 Oxygen Delivery Method Oxygen Flow Rate 06/05/22 17:01 06/05/22 17:30 06/05/22 17:30 Temperature Pulse Rate 77 Respiratory Rate 12 Blood Pressure 176/104 H 183/84 H Pulse Oximetry 99 Oxygen Delivery Method Oxygen Flow Rate 06/05/22 18:00 06/05/22 18:00 06/05/22 18:18 Temperature Pulse Rate 82 87 Respiratory Rate 21 20 Blood Pressure 204/94 H Pulse Oximetry 98 98 Oxygen Delivery Method Oxygen Flow Rate 06/05/22 18:18 06/05/22 18:30 06/05/22 18:30 Temperature Pulse Rate 82 Respiratory Rate 18 Blood Pressure 181/93 H 197/101 H Pulse Oximetry 97 Oxygen Delivery Method Oxygen Flow Rate 06/05/22 19:00 06/05/22 19:00 06/05/22 19:30 Temperature Pulse Rate 81 88 Respiratory Rate 19 21 Blood Pressure 197/93 H Pulse Oximetry 97 97 Oxygen Delivery Method Oxygen Flow Rate 06/05/22 19:31 06/05/22 19:31 06/05/22 19:45 Temperature 98.5 F 97.9 F Pulse Rate 88 68 Respiratory Rate 18 18 Blood Pressure 181/87 H 168/79 H Pulse Oximetry 97 97 Oxygen Delivery Method Oxygen Flow Rate 0 Oxygen Delivery Method Room Air Oxygen Flow Rate 0 Narrative Exam Narrative: General: Patient is a well-developed, well-nourished young appearing 81 year old male, in no distress at this time. HEENT: Normocephalic, atraumatic, extraocular muscles intact, oral pharynx is clear and mucous membranes are moist. Neck is supple and symmetric, trachea is midline, no adenopathy, no thyroid enlargement, nontender, no masses palpated. Negative for JVD Chest: Normal AP diameter and contour without kyphoscoliosis, no nasal flaring, retractions, or tachypneic labored Lungs: Auscultation of all lung grubbs are clear without adventitious sounds, wheezes, rhonchi, or rales. Cardio: S1 & S2 with regular rate and rhythm without murmur, rubs, or gallops, no carotid bruit, no cardiac pulsations present. Abdomen: Soft nontender, negative for organomegaly, or masses. Bowel sounds are present in all 4 quadrants without guarding or rebound, no CVA tenderness. Musculoskeletal: Muscle strength and tone are equal within normal limits, no deformity, crepitus, effusions, cyanosis, clubbing or edema present. Full range of motion intact radial and pedal pulses are normal. Skin: Warm dry and intact without rashes, ulcerations or petechiae. Left hand DIP joint index finger digital myxoid cyst Neuro: Alert and orientated x3, strength is +5/5 in all extremities, sensation to touch intact, no gross deficits noted of cranial nerves. Psych: Patient has a well-kept appearance, appropriate affect, mental status attitude thought context and judgment are appropriate for age. Objective Labs Result Diagrams: 06/05/22 15:31 06/05/22 15:31 Labs: Laboratory Results - last 24 hr 06/05/22 06/05/22 06/05/22 15:31 15:31 15:31 WBC 6.2 RBC 3.92 L Hgb 12.8 L Hct 36.5 L MCV 93.1 MCH 32.6 MCHC 35.0 RDW 13.3 Plt Count 217 Neut % (Auto) 65.8 Lymph % (Auto) 18.1 L [place] % (Auto) 8.1 Eos % (Auto) 7.0 H Baso % (Auto) 1.0 Neut # (Auto) 4100 Lymph # (Auto) 1100 [place] # (Auto) 500 Eos # (Auto) 400 Baso # (Auto) 100 Sodium 140 Potassium 4.5 Chloride 106 Carbon Dioxide 23 BUN 17 Creatinine 1.02 Estimated GFR > 60 BUN/Creatinine Ratio 16.7 Glucose 101 Calcium 9.4 Magnesium 1.9 Total Bilirubin 0.6 AST 35 ALT 19 Alkaline Phosphatase 40 Total Creatine Kinase 178 H CK-MB (CK-2) 2.31 CK-MB (CK-2) Rel Index 1.3 L Troponin I 0.046 H NT-Pro-B Natriuret Pep Total Protein 7.8 Albumin 4.4 Globulin 3.4 Albumin/Globulin Ratio 1.3 Lipase 110 SARS-CoV-2 (PCR) Negative 06/05/22 06/05/22 06/05/22 15:31 17:28 18:25 WBC RBC Hgb Hct MCV MCH MCHC RDW Plt Count Neut % (Auto) Lymph % (Auto) [place] % (Auto) Eos % (Auto) Baso % (Auto) Neut # (Auto) Lymph # (Auto) [place] # (Auto) Eos # (Auto) Baso # (Auto) Sodium Potassium Chloride Carbon Dioxide BUN Creatinine Estimated GFR BUN/Creatinine Ratio Glucose Calcium Magnesium Total Bilirubin AST ALT Alkaline Phosphatase Total Creatine Kinase CK-MB (CK-2) CK-MB (CK-2) Rel Index Troponin I 0.075 H NT-Pro-B Natriuret Pep 716 H Total Protein Albumin Globulin Albumin/Globulin Ratio Lipase SARS-CoV-2 (PCR) Negative Assessment & Plan Assessment & Plan narrative: Tao Krueger is a delightful 81-year-old male with a history of prostate cancer over 20 years ago, hypertension and overweight who is being admitted for chest pain, myocardial injury, and hypertensive urgency, for echo, stress test, and risk stratification. 1. Chest pain, with activity, acute, with myocardial injury, acute, present on admission -patient's chest pain is brought on with physical activity and relieved with rest does radiate into the jaw, patient is stable and asymptomatic at this time. - troponin 1. 0.046, 2. 0.075-will trend troponins overnight -heart score 5 -EKG NSR rate of [address] or T-wave changes occasional PVCs noted -echo, stress test, BNP ordered -aspirin, Lipitor -telemetry, CP protocol nitrates & MS for CP 2. Essential hypertension with hypertensive urgency, acute on chronic, present on admission -presenting blood pressure is 204/94, 181/93, 197/101-upon admit 168/79 -Continue Losarten 50mg daily 3. Overweight as evidence by BMI of 29.4, acute on chronic, present on admission -dietary consult placed for nutritional counseling diet lifestyle and weight loss Code status:DNR -per patient Surrogate decision maker: Spouse Sherri Ledbetter COVID PCR: Negative COVID vaccination: Fully vaccinated DVT/VTE prophylaxis: Lovenox and SCDs Disposition: Patient admitted for observation, stress and echo in the morning trend troponins expected length of stay less than 2 midnights. I have utilized all available immediate resources to obtain, update, or review the patient's current medications. I confirmed that the patient's advanced care plan is present, Code status is documented and/or surrogate decision maker is listed in the patient's medical record. Time Spent With Patient Critical Care time: I spent a total of [] minutes of critical care time on this patient's care today; this time is exclusive of procedural time. Scores GCS Hillister coma scale eye opening: Spontaneous Hillister coma scale verbal response: Orientated Julianne coma scale motor response: Obey commands Julianne coma scale total score: 15 Quality VTE Deep Vein Thrombosis/Pulmonary Embolism Present on Admission: No
[2022-06-05] MEDS: ATORVASTATIN 20 MG TABLET 40 MG PO (21:21)
[2022-06-05 22:36] LABS: D Dimer < 500 ng/ml (<500)
[2022-06-06] VITALS (9 sets, daily range): BP systolic 111–175; BP diastolic 44–96; PULSE 64–80; RESP 16–18; TEMP 36.1–36.7; O2SAT 93–97
[2022-06-06 00:05] LABS: Troponin I 0.062 ng/mL (0.01-0.034)
--- NOTE | 2022-06-06 05:00 | PC.NURSE ---
Patient arrived to AC unit at 19:52 via wheelchair, daughter present. Alert and oriented x 4, able to make needs known to staff. Bed in low position and brakes are locked. Patient shown how to use call light and call light is within reach. Patient had sandwich shortly after arrival. Denies chest pain, shortness of breath, or pain of any kind. NPO at this time. Tele #4 placed on patient, ICU nurse aware.
[2022-06-06 05:16] LABS: Prothrombin Time 11.7 SECONDS (10.1-12.7)
[2022-06-06 05:17] LABS: Add Manual Diff / Slide Review NO; Basophils Absolute Auto 100 /uL (0-100); Basophils Percent Auto 1.1 % (0-2); Eosinophils Absolute Auto 500 /uL (0-450); Eosinophils Percent Auto 9.6 % (2-4); Hematocrit 36.3 % (41-53); Hemoglobin 12.6 g/dL (13.5-17.5); Lymphocytes Absolute Auto 1700 /uL (1100-4500); Lymphocytes Percent Auto 31.5 % (25-40); Mean Corpuscular HGB Conc 34.8 % (30-36); Mean Corpuscular Hemoglobin 32.2 PG (26-34); Mean Corpuscular Volume 92.6 fL (80-100); Monocytes Absolute Auto 500 /uL (0-900); Monocytes Percent Auto 9.8 % (3-14); Neutrophils Absolute Auto 2600 /uL (1500-7000); Platelet Count 203 X10^3/uL (150-400); Red Blood Cell Count 3.92 X10^6/uL (4.5-5.9); Red Cell Distribution Width 13.4 % (11.6-14.8); White Blood Cell Count 5.5 X10^3/uL (4.5-11.0)
[2022-06-06 05:19] LABS: PTT Partial Thromboplastin Tim 31 SECONDS (26-36)
[2022-06-06 05:42] LABS: Blood Urea Nitrogen 16 mg/dL (9-20); Calcium 9.2 mg/dL (8.4-10.2); Carbon Dioxide 25 mmol/L (22-32); Chloride 104 mmol/L (98-107); Cholesterol 174 mg/dL (140-199); Estimated Glomerular Filt Rate > 60 mL/min (>60); Glucose 96 mg/dL (80-110); HDL Cholesterol 53 mg/dL (40-60); HEMOLYSIS < 15 (0-50); LDL Cholesterol Calculated 103 mg/dL (<100); Potassium 4.2 mmol/L (3.4-5.1); Sodium 137 mmol/L (137-145); Triglycerides 88 mg/dL (35-150)
[2022-06-06 05:52] LABS: Troponin I 0.051 ng/mL (0.01-0.034)
[2022-06-06] MEDS: ENOXAPARIN 40 MG/0.4 ML SYRINGE SUBCUT (08:31)
[2022-06-06] MEDS: ASPIRIN EC 325 MG TABLET PO (08:31)
--- NOTE | 2022-06-06 08:56 | PC.NURSE ---
Pt denies chest pain at this time. Pt is KLAMATH with hearing aids in.
--- NOTE | 2022-06-06 09:03 | CM.DANOTE ---
DCP: Case received, EMR reviewed and met with patient. Introduced self and role. Was able to obtain information regarding patient's baseline activity status at home prior to hospitalization. DCP assessment completed with information currently available. Patient is a 81 year old male who admitted yesterday afternoon to the care of the hospitalist team. PCP: Dr. Montelongo. Payer: confirmed: Medicare/[employer]. Patient came to the hospital via private vehicle secondary to having chest pain. According to notes, patient was with his grandson and carrying some plywood up the stairs, and started to feel some chest pressure. Patient is here for cardiac work up, including echo and stress test. Met with patient in his room. He is alert and oriented, and was laying in bed. Confirmed with patient that he resides here in [place] with his spouse, Sherri. Confirmed that he is independent at baseline, and drives. Also confirmed that Dr. Montelongo is his primary care provider, but he stated, has not seen him for a while. P: DCP to continue to follow. Plan is for patient to go home when he is deemed medically stable. Elisha Gil RN/Car Repairer Apprentice Discharge Planning/Care Management Advanced directive, confirm from FAMILY Start: 06/05/22 20:00 Freq: Q24H Status: Active Protocol: Document 06/05/22 20:00 (Rec: 06/06/22 03:12 [id number]) Advance Directive, confirm on record Time 23:30 Person contacted patient Copy received No CM Discharge Assessment Start: 06/06/22 09:02 Freq: Status: Active Protocol: Document 06/06/22 09:02 (Rec: 06/06/22 09:03 [id number]) Discharge Planning Assessment Assigned Cattle Sorter Elisha Gil RN/Car Repairer Apprentice Advance Directives? Yes Advance Directives on File No History Provided By Patient,Medical Record Prior Living Arrangements House Household Members spouse Type of transporation used prior to Drives own vehicle admit Independent with ADL's Yes Is patient alert and oriented? Yes Caregiver for Another No Barriers to Discharge No Discharge Plan Home Transportation Arrangement Spouse Referrals Initiated None needed Whiteboard Updated in Patient Room with Yes name and ext. # of Cattle Sorter Review Status In Process Next Review Type Continued Stay Review
[2022-06-06] MEDS: LOSARTAN 25 MG TABLET 50 MG PO (13:04)
--- NOTE | 2022-06-06 14:44 | P.PN_ITS ---
Subjective Subjective Date Patient Seen: 06/06/22 Time Patient Seen: 08:00 Interval history: He has no complaints today. No chest pain or shortness of breath. Ordered for stress test and per staff this will not be done today. Exam Vital Signs (past 8 hours): - 06/06/22 08:20 06/06/22 08:43 06/06/22 12:00 Temperature 97.7 F 97.5 F L Pulse Rate 65 65 Respiratory Rate 16 16 Blood Pressure 151/74 H 157/96 H Pulse Oximetry 95 96 Oxygen Delivery Method Room Air 06/06/22 13:04 06/06/22 13:11 Temperature Pulse Rate 64 Respiratory Rate Blood Pressure 175/84 H Pulse Oximetry 96 Oxygen Delivery Method Room Air Oxygen Delivery Method Room Air Oxygen Flow Rate 0 Narrative Exam Narrative: GEN: no acute distress, hard of hearing PULM: clear bilaterally CV: regular rate and rhythm, no murmurs EXT: warm and well perfused with no edema Objective Labs Result Diagrams: 06/06/22 04:50 06/06/22 04:50 Labs: Laboratory Results - last 24 hr 06/05/22 06/05/22 06/05/22 15:31 15:31 15:31 WBC 6.2 RBC 3.92 L Hgb 12.8 L Hct 36.5 L MCV 93.1 MCH 32.6 MCHC 35.0 RDW 13.3 Plt Count 217 Neut % (Auto) 65.8 Lymph % (Auto) 18.1 L [place] % (Auto) 8.1 Eos % (Auto) 7.0 H Baso % (Auto) 1.0 Neut # (Auto) 4100 Lymph # (Auto) 1100 [place] # (Auto) 500 Eos # (Auto) 400 Baso # (Auto) 100 PT INR APTT D-Dimer Sodium 140 Potassium 4.5 Chloride 106 Carbon Dioxide 23 BUN 17 Creatinine 1.02 Estimated GFR > 60 BUN/Creatinine Ratio 16.7 Glucose 101 Calcium 9.4 Magnesium 1.9 Total Bilirubin 0.6 AST 35 ALT 19 Alkaline Phosphatase 40 Total Creatine Kinase 178 H CK-MB (CK-2) 2.31 CK-MB (CK-2) Rel Index 1.3 L Troponin I 0.046 H NT-Pro-B Natriuret Pep Total Protein 7.8 Albumin 4.4 Globulin 3.4 Albumin/Globulin Ratio 1.3 Triglycerides Cholesterol LDL Cholesterol, Calc HDL Cholesterol Lipase 110 SARS-CoV-2 (PCR) Negative 06/05/22 06/05/22 06/05/22 15:31 17:28 18:25 WBC RBC Hgb Hct MCV MCH MCHC RDW Plt Count Neut % (Auto) Lymph % (Auto) [place] % (Auto) Eos % (Auto) Baso % (Auto) Neut # (Auto) Lymph # (Auto) [place] # (Auto) Eos # (Auto) Baso # (Auto) PT INR APTT D-Dimer Sodium Potassium Chloride Carbon Dioxide BUN Creatinine Estimated GFR BUN/Creatinine Ratio Glucose Calcium Magnesium Total Bilirubin AST ALT Alkaline Phosphatase Total Creatine Kinase CK-MB (CK-2) CK-MB (CK-2) Rel Index Troponin I 0.075 H NT-Pro-B Natriuret Pep 716 H Total Protein Albumin Globulin Albumin/Globulin Ratio Triglycerides Cholesterol LDL Cholesterol, Calc HDL Cholesterol Lipase SARS-CoV-2 (PCR) Negative 06/05/22 06/05/22 06/06/22 22:10 23:00 04:50 WBC 5.5 RBC 3.92 L Hgb 12.6 L Hct 36.3 L MCV 92.6 MCH 32.2 MCHC 34.8 RDW 13.4 Plt Count 203 Neut % (Auto) 48.0 L Lymph % (Auto) 31.5 [place] % (Auto) 9.8 Eos % (Auto) 9.6 H Baso % (Auto) 1.1 Neut # (Auto) 2600 Lymph # (Auto) 1700 [place] # (Auto) 500 Eos # (Auto) 500 H Baso # (Auto) 100 PT INR APTT D-Dimer < 500 Sodium Potassium Chloride Carbon Dioxide BUN Creatinine Estimated GFR BUN/Creatinine Ratio Glucose Calcium Magnesium Total Bilirubin AST ALT Alkaline Phosphatase Total Creatine Kinase CK-MB (CK-2) CK-MB (CK-2) Rel Index Troponin I 0.062 H NT-Pro-B Natriuret Pep Total Protein Albumin Globulin Albumin/Globulin Ratio Triglycerides Cholesterol LDL Cholesterol, Calc HDL Cholesterol Lipase SARS-CoV-2 (PCR) 06/06/22 06/06/22 06/06/22 04:50 04:50 04:50 WBC RBC Hgb Hct MCV MCH MCHC RDW Plt Count Neut % (Auto) Lymph % (Auto) [place] % (Auto) Eos % (Auto) Baso % (Auto) Neut # (Auto) Lymph # (Auto) [place] # (Auto) Eos # (Auto) Baso # (Auto) PT 11.7 INR 1.0 APTT 31 D-Dimer Sodium 137 Potassium 4.2 Chloride 104 Carbon Dioxide 25 BUN 16 Creatinine 1.07 Estimated GFR > 60 BUN/Creatinine Ratio 15.0 Glucose 96 Calcium 9.2 Magnesium Total Bilirubin AST ALT Alkaline Phosphatase Total Creatine Kinase CK-MB (CK-2) CK-MB (CK-2) Rel Index Troponin I 0.051 H NT-Pro-B Natriuret Pep Total Protein Albumin Globulin Albumin/Globulin Ratio Triglycerides 88 Cholesterol 174 LDL Cholesterol, Calc 103 H HDL Cholesterol 53 Lipase SARS-CoV-2 (PCR) [facility] Medical History History of prostate cancer Hypertension Overweight (BMI 25.0-29.9) Surgical History History of nasal surgery History of prostate surgery Family History Mother Overdose Father Aortic aneurysm and dissection Social History marital status: household members: spouse Smoking Status: Former smoker alcohol intake: never substance use type: does not use Assessment & Plan Assessment & Plan narrative: Mr. Ledbetter is a 81M with H prostate ca, htn who presents with chest pain 1. Acute chest pain -etiology to be determined after stress test, unable to be done 06/06 per staff because no available time slot for patient -trops peaked at 0.07, indeterminate cause -echo showed EF 40%, with global hypokinesis, etiology not clear -continue aspirin, statin 2. Hypertension -continue losartan Time Spent With Patient Critical Care time: I spent a total of [] minutes of critical care time on this patient's care today; this time is exclusive of procedural time. Quality VTE Deep Vein Thrombosis/Pulmonary Embolism Present on Admission: No
[2022-06-06] MEDS: SENNOSIDES 8.6 MG TABLET 17.2 MG PO (20:14)
[2022-06-06] MEDS: ATORVASTATIN 20 MG TABLET 40 MG PO (20:14)
[2022-06-07] VITALS (10 sets, daily range): BP systolic 117–151; BP diastolic 49–66; PULSE 63–81; RESP 16–18; TEMP 36.2–36.8; O2SAT 95–100
[2022-06-07] MEDS: LOSARTAN 25 MG TABLET 50 MG PO (09:31)
[2022-06-07] MEDS: ENOXAPARIN 40 MG/0.4 ML SYRINGE SUBCUT (09:32)
[2022-06-07] MEDS: ASPIRIN EC 325 MG TABLET 81 MG PO (09:32)
[2022-06-07 13:53] LABS: PTT Partial Thromboplastin Tim 38 SECONDS (26-36)
[2022-06-07] MEDS: HEPARIN 5,000 UNIT/ML VIAL 5000 UNIT IV (14:22)
[2022-06-07] MEDS: HEPARIN DRIP 25,000 UNIT/500 ML IV.SOLN 20 UNIT IV (14:22)
--- NOTE | 2022-06-07 18:27 | P.PN_ITS ---
Subjective Subjective Date Patient Seen: 06/07/22 Interval history: 81 F admitted with chest pain, TTE showed EF 40-45%, troponins were slightly elevated. Patient was recommended for non-nuclear stress testing. He remains asymptomatic since being admitted. Today after cardiology reviewed the case prior to administering stress testing Dr. rodgers recommended treatment for NSTEMI with heparin for 48 hours and transfer for [facility] given high risk features. Currently awaiting bed availability at surrounding hospitals. Exam Vital Signs (past 8 hours): - 06/07/22 12:00 06/07/22 15:37 06/07/22 16:00 Temperature 97.1 F L 97.1 F L Pulse Rate 76 81 Respiratory Rate 18 17 Blood Pressure 124/49 L 147/51 H Pulse Oximetry 97 97 96 Oxygen Delivery Method Room Air Oxygen Flow Rate 0 0 Oxygen Delivery Method Room Air Oxygen Flow Rate 0 Narrative Exam Narrative: General:? Patient is well developed and well nourished, in no distress at this time. HEENT:? Normocephalic, atraumatic, extraocular muscles intact, oral pharynx is clear and mucous membranes are moist. Neck: supple and symmetric, trachea is midline, no cervical adenopathy. Negative for JVD Chest:? Normal AP diameter and contour without kyphoscoliosis, no tachypnea, equal chest rise bilaterally. Lungs:? CTA b/l no wheezing rhonchi or rales. Cardio:?RRR no m/r/g. Abdomen: S NT ND. No CVA tenderness. Musculoskeletal:? Muscle strength and tone are equal within normal limits, no deformity. Extremities: No edema or joint effusions. No cyanosis or clubbing. Skin:? Pale,? Warm to touch,dry and intact without rashes, ulcerations or petec hiae.? Neuro:? Alert and orientated x3 but hard of hearing. sensation to touch intact in all extremities, no gross deficits noted of cranial nerves. Psych:? Patient has a well-kept appearance, appropriate affect, mental status attitude thought context and judgment are appropriate for age. Objective Labs Result Diagrams: 06/06/22 04:50 06/06/22 04:50 Labs: Laboratory Results - last 24 hr 06/07/22 13:33 APTT 38 [facility] Medical History History of prostate cancer Hypertension Overweight (BMI 25.0-29.9) Surgical History History of nasal surgery History of prostate surgery Family History Mother Overdose Father Aortic aneurysm and dissection Social History marital status: household members: spouse Smoking Status: Former smoker alcohol intake: never substance use type: does not use Assessment & Plan Assessment & Plan narrative: Mr. Ledbetter is a 81M with PMH prostate ca, htn who presents with chest pain 1. Acute chest pain, NSTEMI -patient initially admitted for stress testing, prior to performing cardiology reviewed case with TTE and mildly elevated troponins and recommended treatment for possible NSTEMI and transfer for [facility]. -trops peaked at 0.07, indeterminate cause. -echo showed EF 40%, with global hypokinesis -continue aspirin, statin. Heparin started 06/07 early afternoon after above discussion with cardiology. -started low dose coreg on 06/07 after cardiology recommendations. 2. Hypertension -continue losartan Dispo: pending transfer for [facility] for presumed NSTEMI, change to inpatient. Code: DNR, surrogate decision maker is patient's spouse or daughter. COVID-19 COVID-19 status: Negative Time Spent With Patient Critical Care time: I spent a total of [] minutes of critical care time on this patient's care today; this time is exclusive of procedural time. Quality VTE Deep Vein Thrombosis/Pulmonary Embolism Present on Admission: No MIPS - Admit I confirm the patient?s Advance Care Plan is present, Code status is documented, Surrogate decision maker is in patient?s record [If Yes, STOP here]: Yes
[2022-06-07 21:19] LABS: PTT Partial Thromboplastin Tim 164 SECONDS (26-36)
[2022-06-07] MEDS: carvediloL 3.125 MG TABLET PO (22:07)
[2022-06-07] MEDS: ATORVASTATIN 20 MG TABLET 40 MG PO (22:07)
[2022-06-07] MEDS: SENNOSIDES 8.6 MG TABLET 17.2 MG PO (22:07)
[2022-06-08] VITALS (10 sets, daily range): BP systolic 90–128; BP diastolic 46–87; PULSE 65–77; RESP 15–18; TEMP 36–37.1; O2SAT 95–98
[2022-06-08 01:55] LABS: Blood Urea Nitrogen 24 mg/dL (9-20); Calcium 9.4 mg/dL (8.4-10.2); Carbon Dioxide 25 mmol/L (22-32); Chloride 103 mmol/L (98-107); Estimated Glomerular Filt Rate > 60 mL/min (>60); Glucose 104 mg/dL (80-110); HEMOLYSIS < 15 (0-50); Magnesium 1.9 mg/dL (1.6-2.3); Potassium 4.4 mmol/L (3.4-5.1); Sodium 136 mmol/L (137-145)
[2022-06-08 01:58] LABS: Add Manual Diff / Slide Review NO; Basophils Absolute Auto 0 /uL (0-100); Basophils Percent Auto 0.8 % (0-2); Eosinophils Absolute Auto 500 /uL (0-450); Eosinophils Percent Auto 8.5 % (2-4); Hematocrit 38.2 % (41-53); Hemoglobin 13.1 g/dL (13.5-17.5); Lymphocytes Absolute Auto 1900 /uL (1100-4500); Lymphocytes Percent Auto 32.7 % (25-40); Mean Corpuscular HGB Conc 34.2 % (30-36); Mean Corpuscular Hemoglobin 31.9 PG (26-34); Mean Corpuscular Volume 93.2 fL (80-100); Monocytes Absolute Auto 500 /uL (0-900); Monocytes Percent Auto 8.1 % (3-14); Neutrophils Absolute Auto 3000 /uL (1500-7000); Neutrophils Percent Auto 49.9 % (50-75); Platelet Count 224 X10^3/uL (150-400); Red Blood Cell Count 4.11 X10^6/uL (4.5-5.9); Red Cell Distribution Width 13.5 % (11.6-14.8); White Blood Cell Count 5.9 X10^3/uL (4.5-11.0)
[2022-06-08 02:02] LABS: PTT Partial Thromboplastin Tim 76 SECONDS (26-36)
[2022-06-08 08:51] LABS: PTT Partial Thromboplastin Tim 56 SECONDS (26-36)
[2022-06-08] MEDS: ENOXAPARIN 40 MG/0.4 ML SYRINGE SUBCUT (09:11)
[2022-06-08] MEDS: ASPIRIN EC 325 MG TABLET 81 MG PO (09:12)
--- NOTE | 2022-06-08 11:08 | PC.NURSE ---
Pt denies any discomfort. SpO2 96% Heparin gtt continues as per orders. Tele showing NSR per ICU staff. Call light w/in reach, bed alarm on for pt safety, Continue w/plan of care.
--- NOTE | 2022-06-08 16:26 | PM.PN.1 ---
Subjective Subjective Date Patient Seen: 06/08/22 Interval history: 81 F admitted with chest pain, TTE showed EF 40-45%, troponins were slightly elevated. Patient was recommended for non-nuclear stress testing but after cardiology reviewed the case prior to administering stress testing Dr. rodgers recommended treatment for NSTEMI with heparin for 48 hours and transfer for [facility] given high risk features. Currently awaiting bed availability at surrounding hospitals, as there are no bed he remains here. Exam Vital Signs (past 8 hours): - 06/08/22 09:11 06/08/22 10:57 06/08/22 12:00 Temperature 97.5 F L Pulse Rate 77 Respiratory Rate 17 Blood Pressure 90/46 L 124/74 Pulse Oximetry 96 98 Oxygen Delivery Method Room Air Oxygen Flow Rate 0 Oxygen Delivery Method Room Air Oxygen Flow Rate 0 Narrative Exam Narrative: General:? Patient is well developed and well nourished, in no distress at this time. HEENT:? Normocephalic, atraumatic, extraocular muscles intact, oral pharynx is clear and mucous membranes are moist. Neck: supple and symmetric, trachea is midline, no cervical adenopathy. Negative for JVD Chest:? Normal AP diameter and contour without kyphoscoliosis, no tachypnea, equal chest rise bilaterally. Lungs:? CTA b/l no wheezing rhonchi or rales. Cardio:?RRR no m/r/g. Abdomen: S NT ND. No CVA tenderness. Musculoskeletal:? Muscle strength and tone are equal within normal limits, no deformity. Extremities: No edema or joint effusions. No cyanosis or clubbing. Skin:? Pale,? Warm to touch,dry and intact without rashes, ulcerations or petechiae.? Neuro:? Alert and orientated x3 but hard of hearing. sensation to touch intact in all extremities, no gross deficits noted of cranial nerves. Psych:? Patient has a well-kept appearance, appropriate affect, mental status attitude thought context and judgment are appropriate for age. Objective Labs Result Diagrams: 06/08/22 01:30 06/08/22 01:30 Labs: Laboratory Results - last 24 hr 06/07/22 06/08/22 06/08/22 20:43 01:30 01:30 WBC 5.9 RBC 4.11 L Hgb 13.1 L Hct 38.2 L MCV 93.2 MCH 31.9 MCHC 34.2 RDW 13.5 Plt Count 224 Neut % (Auto) 49.9 L Lymph % (Auto) 32.7 [place] % (Auto) 8.1 Eos % (Auto) 8.5 H Baso % (Auto) 0.8 Neut # (Auto) 3000 Lymph # (Auto) 1900 [place] # (Auto) 500 Eos # (Auto) 500 H Baso # (Auto) 0 APTT 164 H* D Sodium 136 L Potassium 4.4 Chloride 103 Carbon Dioxide 25 BUN 24 H Creatinine 1.09 Estimated GFR > 60 BUN/Creatinine Ratio 22.0 Glucose 104 Calcium 9.4 Magnesium 1.9 06/08/22 06/08/22 01:30 08:10 WBC RBC Hgb Hct MCV MCH MCHC RDW Plt Count Neut % (Auto) Lymph % (Auto) [place] % (Auto) Eos % (Auto) Baso % (Auto) Neut # (Auto) Lymph # (Auto) [place] # (Auto) Eos # (Auto) Baso # (Auto) APTT 76 H* D 56 H D Sodium Potassium Chloride Carbon Dioxide BUN Creatinine Estimated GFR BUN/Creatinine Ratio Glucose Calcium Magnesium [facility] Medical History History of prostate cancer Hypertension Overweight (BMI 25.0-29.9) Surgical History History of nasal surgery History of prostate surgery Family History Mother Overdose Father Aortic aneurysm and dissection Social History marital status: household members: spouse Smoking Status: Former smoker alcohol intake: never substance use type: does not use Assessment & Plan Assessment & Plan narrative: Mr. Ledbetter is a 81M with H prostate ca, htn who presents with chest pain 1. Acute chest pain, NSTEMI -patient initially admitted for stress testing, prior to performing cardiology reviewed case with TTE and mildly elevated troponins and recommended treatment for possible NSTEMI and transfer for [facility]. -trops peaked at 0.07 then downtrended. -echo showed EF 40%, with global hypokinesis -continue aspirin, statin. Heparin started 06/07 early afternoon after above discussion with cardiology. -started low dose coreg on 06/07 after cardiology recommendations. 2. Hypertension -continue losartan Dispo: pending transfer for [facility] for presumed NSTEMI, changed to inpatient. Code: DNR, surrogate decision maker is patient's spouse or daughter. COVID-19 COVID-19 status: Negative Time Spent With Patient Critical Care time: I spent a total of [] minutes of critical care time on this patient's care today; this time is exclusive of procedural time. Quality VTE Deep Vein Thrombosis/Pulmonary Embolism Present on Admission: No
[2022-06-08] MEDS: ATORVASTATIN 20 MG TABLET 40 MG PO (20:52)
[2022-06-08] MEDS: carvediloL 3.125 MG TABLET PO (20:52)
[2022-06-09] VITALS (9 sets, daily range): BP systolic 101–145; BP diastolic 51–72; PULSE 60–75; RESP 16–20; TEMP 36.1–37.1; O2SAT 95–98
[2022-06-09] MEDS: HEPARIN DRIP 25,000 UNIT/500 ML IV.SOLN 13 UNIT IV (00:30)
[2022-06-09 06:09] LABS: Add Manual Diff / Slide Review NO; Basophils Absolute Auto 0 /uL (0-100); Basophils Percent Auto 0.8 % (0-2); Eosinophils Absolute Auto 400 /uL (0-450); Eosinophils Percent Auto 6.7 % (2-4); Hematocrit 37.7 % (41-53); Lymphocytes Absolute Auto 1200 /uL (1100-4500); Lymphocytes Percent Auto 19.9 % (25-40); Mean Corpuscular HGB Conc 34.5 % (30-36); Mean Corpuscular Hemoglobin 32.1 PG (26-34); Mean Corpuscular Volume 93.1 fL (80-100); Monocytes Absolute Auto 600 /uL (0-900); Monocytes Percent Auto 9.8 % (3-14); Neutrophils Absolute Auto 3800 /uL (1500-7000); Neutrophils Percent Auto 62.8 % (50-75); Platelet Count 207 X10^3/uL (150-400); Red Blood Cell Count 4.05 X10^6/uL (4.5-5.9); Red Cell Distribution Width 13.4 % (11.6-14.8)
[2022-06-09 06:14] LABS: PTT Partial Thromboplastin Tim 49 SECONDS (26-36)
[2022-06-09 06:19] LABS: BUN Creatinine Ratio 26.3 (6-22); Blood Urea Nitrogen 26 mg/dL (9-20); Calcium 9.1 mg/dL (8.4-10.2); Carbon Dioxide 25 mmol/L (22-32); Chloride 103 mmol/L (98-107); Estimated Glomerular Filt Rate > 60 mL/min (>60); Glucose 102 mg/dL (80-110); HEMOLYSIS < 15 (0-50); Magnesium 2.1 mg/dL (1.6-2.3); Potassium 4.1 mmol/L (3.4-5.1); Sodium 136 mmol/L (137-145)
[2022-06-09] MEDS: carvediloL 3.125 MG TABLET PO (09:13)
[2022-06-09] MEDS: ASPIRIN EC 81 MG TABLET PO (09:14)
[2022-06-09] MEDS: ENOXAPARIN 40 MG/0.4 ML SYRINGE SUBCUT (09:14)
--- NOTE | 2022-06-09 16:04 | PM.PN.1 ---
Subjective Subjective Date Patient Seen: 06/09/22 Interval history: 81 F admitted with chest pain, TTE showed EF 40-45%, troponins were slightly elevated. Patient was recommended for non-nuclear stress testing but after cardiology reviewed the case prior to administering stress testing Dr. rodgers recommended treatment for NSTEMI with heparin for 48 hours and transfer for [facility] given high risk features. Currently awaiting bed availability at surrounding hospitals, as there are no bed. He denies chest pain currently, no recurrence of symptoms and denies shortness of breath today. Exam Vital Signs (past 8 hours): - 06/09/22 12:00 Temperature 98.0 F Pulse Rate 75 Respiratory Rate 18 Blood Pressure 142/64 H Pulse Oximetry 96 Oxygen Flow Rate 0 Oxygen Delivery Method Room Air Oxygen Flow Rate 0 Narrative Exam Narrative: General:? Patient is well developed and well nourished, in no distress at this time. HEENT:? Normocephalic, atraumatic, extraocular muscles intact, oral pharynx is clear and mucous membranes are moist. Neck: supple and symmetric, trachea is midline, no cervical adenopathy. Negative for JVD Chest:? Normal AP diameter and contour without kyphoscoliosis, no tachypnea, equal chest rise bilaterally. Lungs:? CTA b/l no wheezing rhonchi or rales. Cardio:?RRR no m/r/g. Abdomen: S NT ND. No CVA tenderness. Musculoskeletal:? Muscle strength and tone are equal within normal limits, no deformity. Extremities: No edema or joint effusions. No cyanosis or clubbing. Skin:? Pale,? Warm to touch,dry and intact without rashes, ulcerations or petechiae.? Neuro:? Alert and orientated x3 but hard of hearing. sensation to touch intact in all extremities, no gross deficits noted of cranial nerves. Psych:? Patient has a well-kept appearance, appropriate affect, mental status attitude thought context and judgment are appropriate for age. Objective Labs Result Diagrams: 06/09/22 05:30 06/09/22 05:30 Labs: Laboratory Results - last 24 hr 06/09/22 06/09/22 06/09/22 05:30 05:30 05:30 WBC 6.0 RBC 4.05 L Hgb 13.0 L Hct 37.7 L MCV 93.1 MCH 32.1 MCHC 34.5 RDW 13.4 Plt Count 207 Neut % (Auto) 62.8 Lymph % (Auto) 19.9 L [place] % (Auto) 9.8 Eos % (Auto) 6.7 H Baso % (Auto) 0.8 Neut # (Auto) 3800 Lymph # (Auto) 1200 [place] # (Auto) 600 Eos # (Auto) 400 Baso # (Auto) 0 APTT 49 H Sodium 136 L Potassium 4.1 Chloride 103 Carbon Dioxide 25 BUN 26 H Creatinine 0.99 Estimated GFR > 60 BUN/Creatinine Ratio 26.3 H Glucose 102 Calcium 9.1 Magnesium 2.1 [facility] Medical History History of prostate cancer Hypertension Overweight (BMI 25.0-29.9) Surgical History History of nasal surgery History of prostate surgery Family History Mother Overdose Father Aortic aneurysm and dissection Social History marital status: household members: spouse Smoking Status: Former smoker alcohol intake: never substance use type: does not use Assessment & Plan Assessment & Plan narrative: Mr. Ledbetter is a 81M with PMH prostate ca, htn who presented with chest pain 1. Acute chest pain, NSTEMI -patient initially admitted for stress testing, prior to performing cardiology reviewed case with TTE and mildly elevated troponins and recommended treatment for possible NSTEMI and transfer for [facility]. -trops peaked at 0.07 then downtrended. -echo showed EF 40%, with global hypokinesis -continue aspirin, statin. Heparin started 06/07 early afternoon after above discussion with cardiology. -started low dose coreg on 06/07 after cardiology recommendations. 2. Hypertension -continue losartan, held one day for mild hypotension, resume tomorrow at 1/2 home dose (25 mg). Dispo: pending transfer for [facility] for presumed NSTEMI, changed to inpatient. Code: DNR, surrogate decision maker is patient's spouse or daughter. COVID-19 COVID-19 status: Negative Time Spent With Patient Critical Care time: I spent a total of [] minutes of critical care time on this patient's care today; this time is exclusive of procedural time. Quality VTE Deep Vein Thrombosis/Pulmonary Embolism Present on Admission: No
--- NOTE | 2022-06-09 17:02 | PC.NURSE ---
Cardiac: Heparin drip has been completed per Dr. Guerrero orders, to run for 48 hours. Pt took a shower after same. His mood is better today, wonders when he will be transfered. No c/p. Was in sb this am, now sr with pvc's. Dr. Crump did spend a long time speaking with him and his dtr later this afternoon. Resting quietly.
[2022-06-09] MEDS: ATORVASTATIN 20 MG TABLET 40 MG PO (20:13)
[2022-06-09] MEDS: carvediloL 3.125 MG TABLET 6.25 MG PO (20:13)
[2022-06-09] MEDS: SODIUM CHLORIDE 0.9% FLUSH 10 ML IV (20:14)
--- NOTE | 2022-06-09 22:00 | PC.NURSE ---
Addendum entered by Shauna Montanez R.N. 06/10/22 02:09: Attempted to restart IV at start of shift as current IV site is 4 days old; patient refused at that time. Original Note: Patient is alert and oriented. Breath sounds CTA with RA sat of 96%. HRR w/telemetry reading of SR w/trigeminal PVC's. BP elevated at 140/55; receiving Coreg. BT present and had BM this shift. Denies dysuria, frequency or urgency with urination. Independent with mobility and is steady on feet. Refusing SCD's so reminded to ankle wave. Denies pain, chest pain, and/or SOB. Fall risk score is low.
[2022-06-10 04:00] VITALS: BP 112/65; PULSE 62; RESP 16; TEMP 36.7; O2SAT 98
[2022-06-10 06:24] LABS: Add Manual Diff / Slide Review NO; Basophils Absolute Auto 100 /uL (0-100); Basophils Percent Auto 1.2 % (0-2); Eosinophils Absolute Auto 500 /uL (0-450); Eosinophils Percent Auto 9.8 % (2-4); Hematocrit 36.6 % (41-53); Hemoglobin 12.6 g/dL (13.5-17.5); Lymphocytes Absolute Auto 1500 /uL (1100-4500); Mean Corpuscular HGB Conc 34.6 % (30-36); Mean Corpuscular Hemoglobin 32.4 PG (26-34); Mean Corpuscular Volume 93.9 fL (80-100); Monocytes Absolute Auto 600 /uL (0-900); Monocytes Percent Auto 11.6 % (3-14); Neutrophils Absolute Auto 2600 /uL (1500-7000); Neutrophils Percent Auto 49.4 % (50-75); Platelet Count 207 X10^3/uL (150-400); Red Cell Distribution Width 13.5 % (11.6-14.8); White Blood Cell Count 5.2 X10^3/uL (4.5-11.0)
[2022-06-10 06:46] LABS: Blood Urea Nitrogen 27 mg/dL (9-20); Calcium 9.1 mg/dL (8.4-10.2); Carbon Dioxide 29 mmol/L (22-32); Chloride 103 mmol/L (98-107); Estimated Glomerular Filt Rate 59 mL/min (>60); Glucose 94 mg/dL (80-110); HEMOLYSIS < 15 (0-50); Magnesium 2.1 mg/dL (1.6-2.3); Potassium 4.4 mmol/L (3.4-5.1); Sodium 137 mmol/L (137-145)
[2022-06-10 09:00] VITALS: BP 116/59; PULSE 63; RESP 16; TEMP 36.1; O2SAT 95
[2022-06-10 09:30] VITALS: O2SAT 96
[2022-06-10] MEDS: LOSARTAN 25 MG TABLET PO (10:52)
[2022-06-10] MEDS: SODIUM CHLORIDE 0.9% FLUSH 10 ML IV (10:52)
[2022-06-10] MEDS: ASPIRIN EC 81 MG TABLET PO (10:52)
[2022-06-10] MEDS: carvediloL 3.125 MG TABLET 6.25 MG PO (10:52)
[2022-06-10] MEDS: ENOXAPARIN 40 MG/0.4 ML SYRINGE SUBCUT (10:52)
[2022-06-10 11:56] VITALS: BP 138/61; PULSE 70; RESP 16; TEMP 36.8; O2SAT 100
--- NOTE | 2022-06-10 12:59 | P.DS_ITS ---
History of Present Illness History of Present Illness Date Patient Seen: 06/10/22 Chief complaint: sob/chest pain Narrative: Per Triny Fields, [facility]-: Tao Ledbetter is a delightful 81-year-old male with a history of prostate cancer over 20 years ago, hypertension and overweight who presented to the ED complaining of chest discomfort.? Which he reports began following getting his booster COVID vaccine in late February. The patient reports the chest discomfort is a steady dull ache that is brought on with activity can radiate up to his jaw experiences some mild nausea with no shortness of breath no diaphoresis, numbness, tingling, changes in vision, headache, and resolves with rest. This chest discomfort has been consistently occurring any time he has been doing physical labor, which he has been working on his house going up and down ladders doing yd work very vigorous activity for himself. He has no known coronary artery disease or pulmonary disease. Patient takes only losartan for hypertension, has never had any cardiac workup or evaluation. Patient denies recent illness injury or trauma, falls, fever, body aches, chills, nausea, vomiting, diarrhea, abdominal pain, swelling of feet hands or legs, balance or coordination issues. Patient is resting comfortably in bed, faughter at bedside, is quite alert on orientated converses easily and in no distress and no symptoms at the time of admit. Patient's admitting vitals temp 98.4?, was slightly hypertensive in the ED 204/94, in room 168/79, HR 82, R 21, O2 saturation 98% on room air. Patient's hemoglobin 12.8, hematocrit 36.5, the rest of the patient's chemistry and liver panels are unremarkable, total creatinine kinase 178, CK-MB RI 1.3, patient's initial troponin 0.046, 2nd troponin 0.075. Patient had a heart score of 5, patient's chest x-ray demonstrated no acute cardiopulmonary processes, patient's EKG NSR at a rate of [address] changes occasional PVCs noted. Patient admitted for chest pain, myocardial injury, hypertensive urgency. Discharge Providers Provider Date of admission: 06/07/22 18:32 Discharge Date: 06/10/22 Primary care physician: Darvin Montelongo MD Consults: 06/05/22 19:52 Consult to Dietitian, Adult Routine Comment: Reason For Exam: BMI 29.3 06/05/22 21:06 Consult to Dietitian, Adult Routine Comment: Reason For Exam: BMI 29.4 Discharge provider: Grant Crump DO Summary Hospital Course Discharge Diagnosis: Please see hospital course by problem list noted below Hospital Course: 81 M with PMH of HTN and prostate CA admitted with chest pain. TTE showed EF 40- 45% with global hypokinesis, troponins were slightly elevated. Patient was recommended for non-nuclear stress testing after review with cardiology in the ER, but after cardiology reviewed the case prior to administering stress testing Dr. david recommended treatment for NSTEMI with heparin for 48 hours and transfer for [facility] given high risk features. However, ultimately after heparin infusion had long been completed, we were unable to find an available bed at a facility with mine laborer for transfer. 1. Acute chest pain, NSTEMI -patient initially admitted for stress testing, prior to performing cardiology reviewed case with TTE and mildly elevated troponins and recommended treatment for possible NSTEMI and transfer for [facility]. -trops peaked at 0.07 then downtrended. -echo showed EF 40%, with global hypokinesis -continue aspirin, statin. Heparin started 06/07 early afternoon after above discussion with cardiology. This was continued for 48 hours. -started low dose coreg on 06/07 after cardiology recommendations, increased to 6.25 after a couple of days. 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 He continued to have no further shortness of breath or chest pain after admission. Discussed with cardiology, Dr. David, given his stability and low likelihood of any ability he would be transferred in the near future, he will be set up for prompt outpatient followup with an interventional ca rdiologist next week. His information was forwarded to the cardiology group's triage nurses. He will continue as aspirin, plavix, and statin as well as his usual losartan and beta oleg for now. He was discharged home. -patient and his daughter was counseled on symptoms with which to return to the ER, including chest pain, shortness of breath, nausea, or vomiting. 2. Hypertension -continue losartan, held one day for mild hypotension, then slowly increased back to usual home dose of 50 mg at time of discharge. 3. History of prostate cancer. Time Spent with Patient Time spent: Greater than 30 minutes Exam Vital Signs (past 8 hours): - 06/10/22 09:00 06/10/22 11:56 Temperature 97 F L 98.2 F Pulse Rate 63 70 Respiratory Rate 16 16 Blood Pressure 116/59 L 138/61 Pulse Oximetry 95 100 Oxygen Flow Rate 0 0 Oxygen Delivery Method Room Air Oxygen Flow Rate 0 Narrative Exam Narrative: General:? Patient is well developed and well nourished, in no distress at this time. HEENT:? Normocephalic, atraumatic, extraocular muscles intact, oral pharynx is clear and mucous membranes are moist. Neck: supple and symmetric, trachea is midline, no cervical adenopathy. Negative for JVD Chest:? Normal AP diameter and contour without kyphoscoliosis, no tachypnea, e qual chest rise bilaterally. Lungs:? CTA b/l no wheezing rhonchi or rales. Cardio:?RRR no m/r/g. Abdomen: S NT ND. No CVA tenderness. Musculoskeletal:? Muscle strength and tone are equal within normal limits, no deformity. Extremities: No edema or joint effusions. No cyanosis or clubbing. Skin:? Pale,? Warm to touch,dry and intact without rashes, ulcerations or petechiae.? Neuro:? Alert and orientated x3 but hard of hearing. sensation to touch intact in all extremities, no gross deficits noted of cranial nerves. Psych:? Patient has a well-kept appearance, appropriate affect, mental status attitude thought context and judgment are appropriate for age. Objective Labs Result Diagrams: 06/10/22 06:17 06/10/22 06:17 Labs: Laboratory Results - last 24 hr 06/10/22 06/10/22 06:17 06:17 WBC 5.2 RBC 3.90 L Hgb 12.6 L Hct 36.6 L MCV 93.9 MCH 32.4 MCHC 34.6 RDW 13.5 Plt Count 207 Neut % (Auto) 49.4 L Lymph % (Auto) 28.0 [place] % (Auto) 11.6 Eos % (Auto) 9.8 H Baso % (Auto) 1.2 Neut # (Auto) 2600 Lymph # (Auto) 1500 [place] # (Auto) 600 Eos # (Auto) 500 H Baso # (Auto) 100 Sodium 137 Potassium 4.4 Chloride 103 Carbon Dioxide 29 BUN 27 H Creatinine 1.23 Estimated GFR 59 L BUN/Creatinine Ratio 22.0 Glucose 94 Calcium 9.1 Magnesium 2.1 PFSH Medical History History of prostate cancer Hypertension Overweight (BMI 25.0-29.9) Surgical History History of nasal surgery History of prostate surgery Family History Mother Overdose Father Aortic aneurysm and dissection Social History marital status: household members: spouse Smoking Status: Former smoker alcohol intake: never substance use type: does not use Discharge Plan Discharge Plan Patient Disposition: Home Provider Discharge Comment: You were admitted to the hospital with an episode of chest pain. You were diagnosed and treated for a possible minor heart attack. Despite multiple days attempting, no bed could be found for transfer. The cardiology group will schedule you hopefully next week for an appointment for a left heart catheterization consultation in their clinic. They should call you on Sunday with an appointment. If you do not hear from them please call [phone] for follow up. State that Dr. David recommended you see an electrification adviser this week. Discharge orders & Medications Prescriptions: New aspirin 81 mg Tablet,Delayed Release (Dr/Ec) 81 mg PO DAILY 30 Days Qty: 30 0RF atorvastatin 40 mg tablet 40 mg PO BEDTIME 30 Days Qty: 30 0RF carvedilol 6.25 mg tablet 6.25 mg PO BID 30 Days Qty: 60 0RF clopidogrel [Plavix] 75 mg tablet 75 mg PO DAILY 30 Days Qty: 30 0RF Continued losartan 50 mg tablet 50 mg PO DAILY Follow up/Referrals: Darvin Montelongo MD [Primary Care Provider] - Diet/Activity/Treatments Diet: Diet as Tolerated Activity: As tolerated Visit Report/Discharge Packet Instructions: DI for Heart Attack, Heart-Healthy Diet Discharge Data Primary Care Provider: Darvin Montelongo Quality VTE Deep Vein Thrombosis/Pulmonary Embolism Present on Admission: No
--- NOTE | 2022-06-10 19:53 | PC.NURSE ---
Discharge: Feels ready to d/c to home. Reviewed d/c packet. Cardiology is to call pt on sunday to schedule appt. The family/dtr also has the office number. If they don't call by late in the day on Sunday, she is to call them. Dr. Crump came in at time of discharge and spoke with dtr and pt at length. She feels comfortable taking pt home. Their questions were answered. Pt d/c to home via auto w/dtr.
== END 2022-06-10 16:30 | disposition home or self-care (01) | DRG 282 ==
LOC: ED 18:35 → AC 18:36
PROVIDERS: Internal Medicine; Nurse Practitioner Family; Admitting Provider Internal Medicine; Emergency Provider Emergency Medicine; PCP Internal Medicine; Referring Provider Emergency Medicine; Visit Provider Internal Medicine
DX: I21.4 Non-ST elevation (NSTEMI) myocardial infarction (principal); I16.0 Hypertensive urgency; I10 Essential (primary) hypertension; Z66 Do not resuscitate; Z20.822 Contact with and (suspected) exposure to COVID-19; Z87.891 Personal history of nicotine dependence
CPT/HCPCS: 36415; 71045; 80048; 80053; 80061; 82550; 82553; 83690; 83735; 83880; 84484; 85025; 85379; 85610; 85730; 87635; 93005; 93010; 93306; 99284; C9803; G0378; J1644; J1650

== ENCOUNTER → 2022-07-20 14:12 | Outpatient (CLI) | payer MEDICARE, SELFPAY ==
[2022-06-05 18:57] VITALS: BMI 29.2
--- NOTE | 2022-07-20 14:17 | DI.RAD.S_ITS ---
PROCEDURE: XR CHEST 2V INDICATIONS: Unspecified systolic (congestive) heart failure TECHNIQUE: 2 views of the chest were acquired. COMPARISON: [facility], CR, XR CHEST 1V, 06/05/2022, 15:46. FINDINGS: Surgical changes and devices: Sternal wires are present. Lungs and pleura: Increased left basilar opacity is present. Mediastinum: Mediastinal contours are normal. Heart size is normal. Bones and chest wall: No suspicious bony abnormalities. Soft tissues appear unremarkable. IMPRESSION: Mild increased left basilar opacity which could represent atelectasis and/or trace effusion. However, it is new compared to prior exam and developing pneumonia cannot be excluded. Dictated by: Mahnaz Hernandez M.D. on 07/20/2022 at 15:37 Approved by: Mahnaz Hernandez M.D. on 07/20/2022 at 15:37
== END ==
PROVIDERS: PCP Internal Medicine; Visit Provider Physician Assistant
DX: I50.20 Unspecified systolic (congestive) heart failure (principal); R06.02 Shortness of breath
CPT/HCPCS: 71046

== ENCOUNTER → 2022-08-22 16:46 | Outpatient (CLI) | payer MEDICARE, SELFPAY ==
[2022-06-05 18:57] VITALS: BMI 29.2
--- NOTE | 2022-08-22 | DI.RAD.S_ITS ---
PROCEDURE: XR CHEST 2V INDICATIONS: f/u pleural effusion TECHNIQUE: 2 views of the chest were acquired. COMPARISON: [facility], , XR CHEST 2V, 07/20/2022, 14:18. [facility], CR, XR CHEST 1V, 06/05/2022, 15:46. FINDINGS: Surgical changes and devices: Median sternotomy wires present. Metallic device projects over the left chest. Lungs and pleura: Small left pleural effusion, similar to slightly decreased. Left hemidiaphragm elevated as before. Platelike opacities left lung base, probable atelectasis. No pneumothorax. Mediastinum: Mediastinal contours are normal. Heart size is normal. Bones and chest wall: No suspicious bony abnormalities. Soft tissues appear unremarkable. IMPRESSION: Small left pleural effusion, similar to slightly decreased. Dictated by: Aftab Jones M.D. on 08/23/2022 at 9:15 Approved by: Aftab Jones M.D. on 08/23/2022 at 9:18
== END ==
PROVIDERS: PCP Internal Medicine; Referring Provider Internal Medicine; Visit Provider Internal Medicine
DX: J90 Pleural effusion, not elsewhere classified (principal); G47.00 Insomnia, unspecified
CPT/HCPCS: 71046; 99213

== ENCOUNTER 2022-11-02 12:30 | Outpatient (RCR) | payer MEDICARE, SELFPAY ==
[2022-06-05 18:57] VITALS: BMI 29.2
== END 2022-11-02 14:30 ==
LOC: CAR 12:30
PROVIDERS: PCP Internal Medicine; Referring Provider Thoracic Surgery (Cardiothoracic Vascular Surgery); Visit Provider Thoracic Surgery (Cardiothoracic Vascular Surgery)
DX: Z95.1 Presence of aortocoronary bypass graft (principal)
CPT/HCPCS: 93798

== ENCOUNTER → 2023-03-08 10:03 | Outpatient (CLI) | payer MEDICARE, SELFPAY ==
[2022-06-05 18:57] VITALS: BMI 29.2
[2023-03-08 10:55] LABS: Add Manual Diff / Slide Review NO; Basophils Absolute Auto 100 /uL (0-100); Basophils Percent Auto 1.1 % (0-2); Eosinophils Absolute Auto 400 /uL (0-450); Eosinophils Percent Auto 9.2 % (2-4); Hematocrit 36.8 % (41-53); Hemoglobin 12.4 g/dL (13.5-17.5); Lymphocytes Absolute Auto 1100 /uL (1100-4500); Lymphocytes Percent Auto 23.9 % (25-40); Mean Corpuscular HGB Conc 33.8 % (30-36); Mean Corpuscular Hemoglobin 31.6 PG (26-34); Mean Corpuscular Volume 93.4 fL (80-100); Monocytes Absolute Auto 500 /uL (0-900); Monocytes Percent Auto 10.8 % (3-14); Neutrophils Absolute Auto 2600 /uL (1500-7000); Platelet Count 219 X10^3/uL (150-400); Red Blood Cell Count 3.94 X10^6/uL (4.5-5.9); Red Cell Distribution Width 14.3 % (11.6-14.8); White Blood Cell Count 4.8 X10^3/uL (4.5-11.0)
[2023-03-08 11:07] LABS: Alanine Aminotransferase 17 IU/L (<50); Albumin 4.1 g/dL (3.5-5.0); Albumin Globulin Ratio 1.3 (1.0-2.8); Alkaline Phosphatase 56 U/L (38-126); Aspartate Aminotransferase 25 IU/L (17-59); BUN Creatinine Ratio 15.3 (6-22); Bilirubin Total 1.1 mg/dL (0.2-1.3); Blood Urea Nitrogen 17 mg/dL (9-20); Calcium 9.4 mg/dL (8.4-10.2); Carbon Dioxide 26 mmol/L (22-32); Chloride 102 mmol/L (98-107); Cholesterol 128 mg/dL (140-199); Estimated Glomerular Filt Rate > 60 mL/min (>60); Globulin 3.1 g/dL (1.7-4.1); Glucose 99 mg/dL (80-110); HDL Cholesterol 53 mg/dL (40-60); HEMOLYSIS < 15 (0-50); LDL Cholesterol Calculated 62 mg/dL (<100); Potassium 4.4 mmol/L (3.4-5.1); Sodium 137 mmol/L (137-145); Total Protein 7.2 g/dL (6.3-8.2); Triglycerides 66 mg/dL (35-150)
[2023-03-08 11:38] LABS: Thyroid Stimulating Hormone 3.08 uIU/mL (0.47-4.68)
== END ==
PROVIDERS: PCP Internal Medicine; Referring Provider Internal Medicine Cardiovascular Disease; Visit Provider Internal Medicine Cardiovascular Disease
DX: I10 Essential (primary) hypertension (principal); Z95.1 Presence of aortocoronary bypass graft; Z79.899 Other long term (current) drug therapy
CPT/HCPCS: 36415; 80053; 80061; 84443; 85025

== ENCOUNTER → 2023-05-04 10:48 | Outpatient (CLI) | payer MEDICARE, SELFPAY ==
[2022-06-05 18:57] VITALS: BMI 29.2
--- NOTE | 2023-05-04 10:50 | DI.US.S_ITS ---
PROCEDURE: US ABDOMEN LIMITED INDICATIONS: LIVER CYST TECHNIQUE: Real-time focused scanning was performed of the abdomen, with image documentation. COMPARISON: None. FINDINGS: The liver is normal in size and demonstrates no focal lesions. Incidental note is made of a 2.8 cm simple cyst within the posterior medial left lobe of the liver. Layering, nonmobile gallstones can be seen. The gallbladder wall is not thickened, measuring 3 mm or less. No specific pericholecystic fluid is seen. The sonographic Gilman sign is negative. There is no biliary dilatation, the common bile duct measures 6 mm. No significant pancreatic abnormality is seen on these images. IMPRESSION: A 2.8 cm simple left liver cyst is seen. Layering, non mobile gallstones can be seen, without additional sonographic signs of cholecystitis. Dictated by: Daniel Velasco M.D. on 05/04/2023 at 10:48 Approved by: Daniel Velasco M.D. on 05/04/2023 at 10:49
== END ==
PROVIDERS: PCP Internal Medicine; Referring Provider Internal Medicine Cardiovascular Disease; Visit Provider Internal Medicine Cardiovascular Disease
DX: K76.89 Other specified diseases of liver (principal); K80.20 Calculus of gallbladder without cholecystitis without obstruction
CPT/HCPCS: 76705

== ENCOUNTER 2023-07-14 13:19 | Emergency (ER) | payer MEDICARE, SELFPAY ==
[2022-06-05 18:57] VITALS: BMI 29.2
[2023-07-14 13:30] VITALS: BP 118/65; PULSE 64; RESP 16; TEMP 35.8; O2SAT 98; BMI 24.4
--- NOTE | 2023-07-14 17:19 | ED_ITS ---
HPI - Epistaxis General Chief complaint: Nasal Problem Stated complaint: BLOODY NOSE Time Seen by Provider: 07/14/23 13:30 Source: patient Mode of arrival: Ambulatory History of Present Illness HPI Narrative: 83-year-old male former smoker on Plavix presents with a brisk left-sided nasal bleed over the course of the day with the passage of clots. He has been having relatively heavy bleeding for the past few days. He does not take any true blood thinners. She he denies dizziness, weakness or lightheadedness. He denies any chest pain or shortness of breath. He is had no nausea or vomiting. He denies any recent upper respiratory complaints Related Data Home Medications Medication Instructions Recorded Confirmed losartan 50 mg tablet 50 mg PO DAILY 06/05/22 06/05/22 clopidogrel 75 mg tablet 75 mg PO DAILY 08/22/22 08/22/22 melatonin 5 mg capsule 5 mg PO 08/22/22 08/22/22 metoprolol succinate 50 mg 50 mg PO DAILY 08/22/22 08/22/22 tablet,extended release 24 hr Allergies Allergy/AdvReac Type Severity Reaction Status Date / Time No Known Drug Allergies Allergy Verified 07/14/23 13:40 Review of Systems Review of Systems Narrative: GENERAL: Denies chills, fatigue, malaise, fever, sweats. HEENT: see HPI RESPIRATORY: Denies dyspnea, cough, wheezing, hemoptysis, sputum. CARDIOVASCULAR: Denies chest pain, palpitations, orthopnea, edema, GASTROINTESTINAL: Denies nausea, vomiting, abdominal pain, diarrhea, const ipation, melena. : Denies dysuria, frequency, incontinence, hematuria, urinary retention. MUSCULOSKELETAL: denies weakness, joint pain, or bony pain SKIN: Denies rash, skin lesions, or other NEUROLOGIC: Denies weakness, headache, numbness, change in speech, confusion, seizures, incoordination. PSYCHIATRIC: No concerning psychosocial issues. 12 point review of systems is negative except for those stated above Patient History Medical History Former cigarette smoker History of prostate cancer Hypertension Overweight (BMI 25.0-29.9) Surgical History History of nasal surgery History of prostate surgery Family History Mother Overdose Father Aortic aneurysm and dissection Social History marital status: household members: spouse Smoking Status: Former smoker alcohol intake: never substance use type: does not use Smoking Status: Former smoker alcohol intake frequency: 0-2 drinks per day Substance Use Type: does not use Exam Narrative Exam Narrative: GENERAL: [83] year old patient appears stated age. Well-developed patient, in mild distress. HEAD: Atraumatic. Normocephalic. EYES: Pupils equal round and reactive. Extraocular motions intact. No scleral icterus. No injection or drainage. ENT: large amount of fresh bright red bleeding from left naris, no obvious source, large clots posteriorly. Throat without erythema, tonsillar hypertrophy or exudate. Airway patent. NECK: Trachea midline. Non tender CARDIOVASCULAR: Regular rate and rhythm without murmurs, gallops, or rubs. RESPIRATORY: Clear to auscultation. Breath sounds equal bilaterally. No wheezes, rales, or rhonchi. GASTROINTESTINAL: Abdomen soft, non-tender, nondistended. EXTREMITIES: No edema or joint tenderness. BACK: Nontender without deformity or crepitance. No flank tenderness. NEURO: AOx3. SKIN: No rash or erythema of visible areas Initial Vital Signs Initial Vital Signs: Vital Signs Temperature 96.5 F L 07/14/23 13:30 Pulse Rate 64 07/14/23 13:30 Respiratory Rate 16 07/14/23 13:30 Blood Pressure 118/65 07/14/23 13:30 Pulse Oximetry 98 07/14/23 13:30 Oxygen Delivery Method Room Air 07/14/23 13:30 Procedures Epistaxis Control Nostril: left Nose Prepped With: oxymetazoline Direct Inspection: unable to visualize Clots Removed by: suction Device Inserted: hemostatic balloon Course Orders Ordered: Discontinued Medications Oxymetazoline HCl (Oxymetazoline Nasal [place] 30 Ml) 2 sprays NASAL NOW ONE Stop: 07/14/23 17:05 Last Admin: 07/14/23 17:24 Dose: 2 sprays Documented By: GERALDINE Silver Nitrate/Potassium Nitrate (Silver Nitrate Stick) 1 each TOP NOW ONE Stop: 07/14/23 17:05 Last Admin: 07/14/23 17:27 Dose: 1 each Documented By: GERALDINE Vital Signs Vital signs: Vital Signs - 8 hr 07/14/23 13:30 07/14/23 18:08 Temperature 96.5 F L Pulse Rate 64 82 Respiratory Rate 16 17 Blood Pressure 118/65 140/77 Pulse Oximetry 98 96 Oxygen Delivery Method Room Air Room Air MDM - Epistaxis MDM Narrative Medical decision making narrative: [83] year old patient presents with left-sided nasal bleeding Multiple etiologies for patient's symptoms considered including, but not limited to: [ anterior bleed versus posterior bleed] Prior Charts reviewed in our EMR Primary Historian: patient patient with large amount of bleeding from left naris, unable to visualize any source of an anterior bleed, 7.5 cm rhino rocket placed after being soaked in TXA. Observed for some time and no ongoing bleeding noted. Given lack of systemic complaints no labs ordered Patient's symptoms improved over duration of stay with above-stated therapies. Findings and discharge diagnosis discussed with patient/family followed by verbalization of understanding Return precautions discussed with patient/family whom verbalize understanding of diagnosis and plan Discharge Plan Departure Patient Disposition: Home Clinical Impression: Epistaxis Instructions: DI for Nosebleed Activity Restrictions/Additional Instructions: *You have been diagnosed with [ nosebleed ] *What to do: *Please continue to take your regular medications as directed. [ ] New medication prescriptions sent to your pharmacy: [ ] [ ] New medication written as a paper prescription [ ] No new medications given *Please follow up with Dr. Mcfarlane of [facility], call the office on Sunday morning and let them know that you were seen in the emergency department and we would like you seen in follow-up. The nasal packing should remain in place until your follow-up. If it falls out in your bleeding does not start up again that is okay but still please follow-up. *Return to Emergency Department if you should have any new, worsening or concerning symptoms, such as [fever greater than 101 F, shaking chills, worsening pain, persistent vomiting or other bothersome symptoms] Prescriptions: No Action losartan 50 mg tablet 50 mg PO DAILY melatonin 5 mg capsule 5 mg PO metoprolol succinate 50 mg tablet extended release 24 hr 50 mg PO DAILY clopidogrel 75 mg tablet 75 mg PO DAILY Referrals: Kev Mcfarlane MD [Physician] - Yovana Urbano MD [Primary Care Provider] - Stand Alone Forms: Patient Portal/API
[2023-07-14] MEDS: OXYMETAZOLINE NASAL SPRAY 30 ML 2 SPRAYS NASAL (17:24)
[2023-07-14] MEDS: TRANEXAMIC ACID 1,000 MG VIAL 1000 MG (17:26)
[2023-07-14] MEDS: SILVER NITRATE STICK 1 EACH TOP (17:27)
[2023-07-14 18:08] VITALS: BP 140/77; PULSE 82; RESP 17; O2SAT 96
== END 2023-07-14 18:10 | disposition home or self-care (01) ==
PROVIDERS: Emergency Provider Emergency Medicine; PCP Internal Medicine
DX: R04.0 Epistaxis (principal)
CPT/HCPCS: 17250; 30901; 30903; 99282

== ENCOUNTER → 2023-08-21 15:23 | Outpatient (CLI) | payer MEDICARE, SELFPAY ==
[2022-06-05 18:57] VITALS: BMI 29.2
[2023-08-21 17:41] LABS: Add Manual Diff / Slide Review NO; Basophils Absolute Auto 100 /uL (0-100); Basophils Percent Auto 1.1 % (0-2); Eosinophils Absolute Auto 500 /uL (0-450); Eosinophils Percent Auto 8.9 % (2-4); Hematocrit 33.3 % (41-53); Hemoglobin 11.3 g/dL (13.5-17.5); Lymphocytes Absolute Auto 1100 /uL (1100-4500); Lymphocytes Percent Auto 19.7 % (25-40); Mean Corpuscular Hemoglobin 31.7 PG (26-34); Mean Corpuscular Volume 93.4 fL (80-100); Monocytes Absolute Auto 500 /uL (0-900); Monocytes Percent Auto 9.2 % (3-14); Neutrophils Absolute Auto 3400 /uL (1500-7000); Neutrophils Percent Auto 61.1 % (50-75); Platelet Count 242 X10^3/uL (150-400); Red Blood Cell Count 3.57 X10^6/uL (4.5-5.9); Red Cell Distribution Width 14.4 % (11.6-14.8); White Blood Cell Count 5.5 X10^3/uL (4.5-11.0)
[2023-08-21 17:43] LABS: Reticulocyte Count, Percent 1.4 % (0.9-2.6)
[2023-08-21 18:35] LABS: Ferritin 81 ng/mL (18-464)
[2023-08-21 19:06] LABS: Folate 6.8 ng/mL (2.76-20.0); Vitamin B12 851 pg/mL (239-931)
== END ==
PROVIDERS: PCP Internal Medicine; Referring Provider Family Medicine; Visit Provider Family Medicine
DX: D64.9 Anemia, unspecified (principal)
CPT/HCPCS: 36415; 82607; 82728; 82746; 85025; 85045

== ENCOUNTER → 2024-04-04 10:42 | Outpatient (CLI) | payer MEDICARE, SELFPAY ==
[2022-06-05 18:57] VITALS: BMI 29.2
--- NOTE | 2024-04-04 10:49 | DI.RAD.S_ITS ---
PROCEDURE: XR RIBS BI MIN 4V W CXR1V INDICATIONS: MUSCLE ATROPHY TECHNIQUE: 3 views of the ribs were acquired, along with a single view chest. COMPARISON: None. FINDINGS: Surgical changes and devices: Median sternotomy wires. Bones and chest wall: No fractures or dislocations. No suspicious bony lesions. Overlying soft tissues appear unremarkable. Lungs and pleura: No pleural effusions or pneumothorax. Linear atelectasis versus scarring at the left lung base. Lungs appear otherwise clear. Mediastinum: Mediastinal contours appear normal. Heart size is normal. IMPRESSION: No displaced rib fracture or pneumothorax. Dictated by: Aristeo Mars M.D. on 04/04/2024 at 12:50 Approved by: Aristeo Mars M.D. on 04/04/2024 at 12:51
--- NOTE | 2024-04-04 10:49 | DI.RAD.S_ITS ---
PROCEDURE: XR THORACIC SPINE 3V INDICATIONS: MUSCLE ATROPHY TECHNIQUE: 3 views of the thoracic spine were acquired. COMPARISON: [facility], , XR CHEST 2V, 08/22/2022, 17:40. FINDINGS: Bones: Moderate compression deformity of a midthoracic vertebral body which is new compared to 08/22/2022. No suspicious bony lesions. 12 pairs of ribs are noted, and appear intact where visualized. Diffusely decreased osseous mineralization. Multilevel degenerative changes of the thoracic spine. Median sternotomy wires. Soft tissues: No paravertebral stripe thickening. IMPRESSION: Moderate compression deformity of a midthoracic vertebral body of uncertain acuity. This is new when compared to 2021. Multilevel degenerative changes of the thoracic spine and diffusely decreased osseous mineralization. Dictated by: Aristeo Mars M.D. on 04/04/2024 at 11:50 Approved by: Aristeo Mars M.D. on 04/04/2024 at 11:52
== END ==
LOC: LAB 10:46
PROVIDERS: PCP Internal Medicine; Referring Provider Family Medicine; Visit Provider Family Medicine
DX: M62.50 Muscle wasting and atrophy, not elsewhere classified, unspecified site (principal); M54.6 Pain in thoracic spine
CPT/HCPCS: 71111; 72070

== ENCOUNTER → 2024-04-07 09:16 | Outpatient (CLI) | payer MEDICARE, SELFPAY ==
[2022-06-05 18:57] VITALS: BMI 29.2
[2024-04-07 10:26] LABS: Hemoglobin A1C% w Est Avg Glu 5.2 % (4.0-6.0)
[2024-04-07 10:38] LABS: Add Manual Diff / Slide Review NO; Basophils Absolute Auto 100 /uL (0-100); Basophils Percent Auto 1.5 % (0-2); Eosinophils Absolute Auto 600 /uL (0-450); Eosinophils Percent Auto 13.2 % (2-4); Hematocrit 35.8 % (41-53); Hemoglobin 12.2 g/dL (13.5-17.5); Lymphocytes Absolute Auto 1100 /uL (1100-4500); Lymphocytes Percent Auto 23.4 % (25-40); Mean Corpuscular HGB Conc 34.2 % (30-36); Mean Corpuscular Hemoglobin 32.3 PG (26-34); Mean Corpuscular Volume 94.5 fL (80-100); Monocytes Absolute Auto 500 /uL (0-900); Monocytes Percent Auto 11.6 % (3-14); Neutrophils Absolute Auto 2400 /uL (1500-7000); Neutrophils Percent Auto 50.3 % (50-75); Platelet Count 217 X10^3/uL (150-400); Red Blood Cell Count 3.78 X10^6/uL (4.5-5.9); White Blood Cell Count 4.7 X10^3/uL (4.5-11.0)
[2024-04-07 10:44] LABS: Cholesterol 131 mg/dL (140-199); HDL Cholesterol 65 mg/dL (40-60); LDL Cholesterol Calculated 57 mg/dL (<100); Magnesium 2.1 mg/dL (1.6-2.3); Triglycerides 43 mg/dL (35-150)
[2024-04-07 10:48] LABS: NT-proBNP (BNP-Adult 18+) 955 pg/mL (<450)
[2024-04-07 11:09] LABS: Thyroid Stimulating Hormone 3.33 uIU/mL (0.47-4.68)
[2024-04-07 11:13] LABS: Prostate Specific Antigen < 0.064 ng/mL (0.10-4.00)
[2024-04-07 23:08] LABS: Alanine Aminotransferase 15 IU/L (<50); Albumin 4.2 g/dL (3.5-5.0); Albumin Globulin Ratio 1.3 (1.0-2.8); Alkaline Phosphatase 48 U/L (38-126); Aspartate Aminotransferase 29 IU/L (17-59); BUN Creatinine Ratio 24.8 (6-22); Bilirubin Total 0.8 mg/dL (0.2-1.3); Blood Urea Nitrogen 33 mg/dL (9-20); Calcium 9.6 mg/dL (8.4-10.2); Carbon Dioxide 25 mmol/L (22-32); Chloride 106 mmol/L (98-107); Estimated Glomerular Filt Rate 54 mL/min (>60); Globulin 3.2 g/dL (1.7-4.1); Glucose 102 mg/dL (80-110); HEMOLYSIS < 15 (0-50); Potassium 5.3 mmol/L (3.4-5.1); Sodium 137 mmol/L (137-145); Total Protein 7.4 g/dL (6.3-8.2)
== END ==
PROVIDERS: Internal Medicine Cardiovascular Disease; PCP Internal Medicine; Referring Provider Family Medicine; Visit Provider Family Medicine
DX: I10 Essential (primary) hypertension (principal); Z79.899 Other long term (current) drug therapy; Z85.46 Personal history of malignant neoplasm of prostate; Z95.1 Presence of aortocoronary bypass graft
CPT/HCPCS: 36415; 80053; 80061; 83036; 83735; 83880; 84153; 84443; 85025

== ENCOUNTER → 2024-04-28 10:51 | Outpatient (CLI) | payer MEDICARE, SELFPAY ==
[2022-06-05 18:57] VITALS: BMI 29.2
[2024-04-28 12:04] LABS: BUN Creatinine Ratio 22.3 (6-22); Blood Urea Nitrogen 33 mg/dL (9-20); Calcium 9.4 mg/dL (8.4-10.2); Carbon Dioxide 25 mmol/L (22-32); Chloride 109 mmol/L (98-107); Estimated Glomerular Filt Rate 47 mL/min (>60); Glucose 101 mg/dL (80-110); HEMOLYSIS < 15 (0-50); Potassium 4.4 mmol/L (3.4-5.1); Sodium 139 mmol/L (137-145)
== END ==
LOC: LAB 10:54
PROVIDERS: PCP Family Medicine; Referring Provider Internal Medicine Cardiovascular Disease; Visit Provider Internal Medicine Cardiovascular Disease
DX: I10 Essential (primary) hypertension (principal); Z95.1 Presence of aortocoronary bypass graft
CPT/HCPCS: 36415; 80048

== ENCOUNTER → 2024-05-02 14:47 | Outpatient (CLI) | payer MEDICARE, SELFPAY ==
[2022-06-05 18:57] VITALS: BMI 29.2
[2024-05-02 15:11] LABS: Add Manual Diff / Slide Review NO; Basophils Absolute Auto 100 /uL (0-100); Basophils Percent Auto 0.9 % (0-2); Eosinophils Absolute Auto 600 /uL (0-450); Eosinophils Percent Auto 10.4 % (2-4); Hematocrit 35.9 % (41-53); Hemoglobin 12.4 g/dL (13.5-17.5); Lymphocytes Absolute Auto 1200 /uL (1100-4500); Lymphocytes Percent Auto 19.6 % (25-40); Mean Corpuscular HGB Conc 34.4 % (30-36); Mean Corpuscular Hemoglobin 32.6 PG (26-34); Mean Corpuscular Volume 94.6 fL (80-100); Monocytes Absolute Auto 500 /uL (0-900); Monocytes Percent Auto 8.9 % (3-14); Neutrophils Absolute Auto 3700 /uL (1500-7000); Neutrophils Percent Auto 60.2 % (50-75); Platelet Count 215 X10^3/uL (150-400); Red Cell Distribution Width 13.9 % (11.6-14.8); White Blood Cell Count 6.1 X10^3/uL (4.5-11.0)
== END ==
PROVIDERS: PCP Family Medicine; Referring Provider Family Medicine; Visit Provider Family Medicine
DX: D64.9 Anemia, unspecified (principal)
CPT/HCPCS: 36415; 85025

== ENCOUNTER → 2024-06-19 11:58 | Outpatient (CLI) | payer MEDICARE, SELFPAY ==
[2022-06-05 18:57] VITALS: BMI 29.2
[2024-06-19 12:46] LABS: Add Manual Diff / Slide Review NO; Basophils Absolute Auto 100 /uL (0-100); Basophils Percent Auto 1.3 % (0-2); Eosinophils Absolute Auto 500 /uL (0-450); Eosinophils Percent Auto 10.6 % (2-4); Hematocrit 35.8 % (41-53); Hemoglobin 12.2 g/dL (13.5-17.5); Lymphocytes Absolute Auto 1200 /uL (1100-4500); Lymphocytes Percent Auto 25.3 % (25-40); Mean Corpuscular Hemoglobin 32.8 PG (26-34); Mean Corpuscular Volume 96.4 fL (80-100); Monocytes Absolute Auto 600 /uL (0-900); Monocytes Percent Auto 12.7 % (3-14); Neutrophils Absolute Auto 2300 /uL (1500-7000); Neutrophils Percent Auto 50.1 % (50-75); Platelet Count 212 X10^3/uL (150-400); Red Blood Cell Count 3.72 X10^6/uL (4.5-5.9); Red Cell Distribution Width 13.9 % (11.6-14.8); White Blood Cell Count 4.6 X10^3/uL (4.5-11.0)
[2024-06-19 13:12] LABS: Alanine Aminotransferase 17 IU/L (<50); Albumin 4.3 g/dL (3.5-5.0); Albumin Globulin Ratio 1.3 (1.0-2.8); Alkaline Phosphatase 42 U/L (38-126); Aspartate Aminotransferase 31 IU/L (17-59); BUN Creatinine Ratio 18.8 (6-22); Bilirubin Total 0.9 mg/dL (0.2-1.3); Blood Urea Nitrogen 30 mg/dL (9-20); Calcium 9.8 mg/dL (8.4-10.2); Carbon Dioxide 23 mmol/L (22-32); Chloride 104 mmol/L (98-107); Cholesterol 137 mg/dL (140-199); Estimated Glomerular Filt Rate 43 mL/min (>60); Globulin 3.2 g/dL (1.7-4.1); Glucose 88 mg/dL (80-110); HDL Cholesterol 59 mg/dL (40-60); HEMOLYSIS < 15 (0-50); LDL Cholesterol Calculated 61 mg/dL (<100); Sodium 135 mmol/L (137-145); Total Protein 7.5 g/dL (6.3-8.2); Triglycerides 87 mg/dL (35-150)
[2024-06-19 13:18] LABS: NT-proBNP (BNP-Adult 18+) 696 pg/mL (<450)
[2024-06-19 15:26] LABS: Thyroid Stimulating Hormone 3.27 uIU/mL (0.47-4.68)
== END ==
PROVIDERS: PCP Family Medicine; Referring Provider Internal Medicine Cardiovascular Disease; Visit Provider Internal Medicine Cardiovascular Disease
DX: I10 Essential (primary) hypertension (principal); Z95.1 Presence of aortocoronary bypass graft; Z79.899 Other long term (current) drug therapy
CPT/HCPCS: 36415; 80053; 80061; 83880; 84443; 85025

== ENCOUNTER → 2024-08-04 14:47 | Outpatient (CLI) | payer MEDICARE, SELFPAY ==
[2022-06-05 18:57] VITALS: BMI 29.2
[2024-08-04 15:35] LABS: Add Manual Diff / Slide Review NO; Basophils Absolute Auto 100 /uL (0-100); Basophils Percent Auto 1.3 % (0-2); Eosinophils Absolute Auto 500 /uL (0-450); Eosinophils Percent Auto 9.3 % (2-4); Hematocrit 37.2 % (41-53); Hemoglobin 12.7 g/dL (13.5-17.5); Lymphocytes Absolute Auto 1200 /uL (1100-4500); Lymphocytes Percent Auto 24.5 % (25-40); Mean Corpuscular HGB Conc 34.1 % (30-36); Mean Corpuscular Hemoglobin 32.6 PG (26-34); Mean Corpuscular Volume 95.6 fL (80-100); Monocytes Absolute Auto 500 /uL (0-900); Monocytes Percent Auto 10.2 % (3-14); Neutrophils Absolute Auto 2700 /uL (1500-7000); Neutrophils Percent Auto 54.7 % (50-75); Platelet Count 229 X10^3/uL (150-400); Red Blood Cell Count 3.89 X10^6/uL (4.5-5.9); Red Cell Distribution Width 13.2 % (11.6-14.8)
[2024-08-04 15:48] LABS: BUN Creatinine Ratio 15.7 (6-22); Blood Urea Nitrogen 27 mg/dL (9-20); Calcium 9.8 mg/dL (8.4-10.2); Carbon Dioxide 24 mmol/L (22-32); Chloride 103 mmol/L (98-107); Estimated Glomerular Filt Rate 39 mL/min (>60); Glucose 93 mg/dL (80-110); HEMOLYSIS < 15 (0-50); Sodium 135 mmol/L (137-145)
[2024-08-04 16:00] LABS: NT-proBNP (BNP-Adult 18+) 1130 pg/mL (<450)
[2024-08-04 16:26] LABS: Ferritin 109 ng/mL (18-464)
[2024-08-04 16:57] LABS: Folate 8.2 ng/mL (2.76-20.0); Vitamin B12 965 pg/mL (239-931)
== END ==
PROVIDERS: PCP Family Medicine; Referring Provider Family Medicine; Visit Provider Family Medicine
DX: N18.32 Chronic kidney disease, stage 3b (principal); I50.9 Heart failure, unspecified; D64.9 Anemia, unspecified
CPT/HCPCS: 36415; 80048; 82607; 82728; 82746; 83880; 85025

== ENCOUNTER → 2024-09-25 15:09 | Outpatient (CLI) | payer MEDICARE, SELFPAY ==
[2022-06-05 18:57] VITALS: BMI 29.2
[2024-09-25 16:50] LABS: Add Manual Diff / Slide Review NO; Basophils Absolute Auto 100 /uL (0-100); Basophils Percent Auto 1.2 % (0-2); Eosinophils Absolute Auto 500 /uL (0-450); Hematocrit 37.9 % (41-53); Hemoglobin 12.7 g/dL (13.5-17.5); Lymphocytes Absolute Auto 1100 /uL (1100-4500); Mean Corpuscular HGB Conc 33.5 % (30-36); Mean Corpuscular Hemoglobin 32.1 PG (26-34); Monocytes Absolute Auto 600 /uL (0-900); Monocytes Percent Auto 11.7 % (3-14); Neutrophils Absolute Auto 2700 /uL (1500-7000); Neutrophils Percent Auto 55.1 % (50-75); Platelet Count 235 X10^3/uL (150-400); Red Blood Cell Count 3.95 X10^6/uL (4.5-5.9); Red Cell Distribution Width 13.5 % (11.6-14.8); White Blood Cell Count 4.9 X10^3/uL (4.5-11.0)
== END ==
PROVIDERS: PCP Family Medicine; Referring Provider Internal Medicine Cardiovascular Disease; Visit Provider Internal Medicine Cardiovascular Disease
DX: I10 Essential (primary) hypertension (principal); Z95.1 Presence of aortocoronary bypass graft
CPT/HCPCS: 36415; 85025

== ENCOUNTER → 2025-01-16 13:13 | Outpatient (CLI) | payer MEDICARE, SELFPAY ==
[2022-06-05 18:57] VITALS: BMI 29.2
--- NOTE | 2025-01-16 13:16 | DI.RAD.S_ITS ---
PROCEDURE: XR LUMBAR SPINE 2-3V INDICATIONS: Dorsalgia, unspecified TECHNIQUE: 3 views of the lumbar spine were acquired. COMPARISON: None. FINDINGS: Bones: 5 [id number] vertebrae are present. Mild S-shaped scoliosis of the thoracolumbar spine. Multilevel spondylolisthesis as follows: * 0.5 cm retrolisthesis L1 on L2; * 0.6 cm retrolisthesis L2 on L3; * 0.5 retrolisthesis L3 on L4; * 0.6 cm retrolisthesis L4 on L5; * 1.1 cm anterolisthesis L5 on S1. There is otherwise normal bony alignment. Severe L5-S1 and moderate L3-L4 and L4-L5 disc height loss with adjacent endplate sclerosis and anterior osteophyte complex formation. No vertebral body compression fractures. No suspicious bony lesions. Soft tissues: Overlying bowel gas pattern is normal. No suspicious soft tissue calcifications. Atherosclerotic vascular calcifications. IMPRESSION: Multilevel spondylosis and spondylolisthesis without evidence of acute bony abnormality. Dictated by: Emmanuel Garcia M.D. on 01/17/2025 at 5:08 Approved by: Emmanuel Garcia M.D. on 01/17/2025 at 5:13
--- NOTE | 2025-01-16 13:16 | DI.RAD.S_ITS ---
PROCEDURE: XR THORACIC SPINE 2V INDICATIONS: Dorsalgia, unspecified TECHNIQUE: 3 views of the thoracic spine were acquired. COMPARISON: [facility], CR, XR THORACIC SPINE 3V, 04/04/2024, 10:53. FINDINGS: Bones: New compression fracture deformities of the T12 and L1 vertebral bodies have resulted in approximately 25-50% anterior height loss of T12 and less than 25% anterior height loss of L1. Previous T8 compression fracture is stable in appearance. No suspicious bony lesions. 12 pairs of ribs are noted, and appear intact where visualized. Soft tissues: No paravertebral stripe thickening. Median sternotomy sutures. IMPRESSION: New compression fractures of the T12 and L1 vertebral bodies and chronic appearing T8 compression fracture. Dictated by: Emmanuel Garcia M.D. on 01/17/2025 at 5:14 Approved by: Emmanuel Garcia M.D. on 01/17/2025 at 5:41
== END ==
PROVIDERS: PCP Family Medicine; Referring Provider Family Medicine; Visit Provider Family Medicine
DX: M43.16 Spondylolisthesis, lumbar region (principal); M43.17 Spondylolisthesis, lumbosacral region; M47.816 Spondylosis without myelopathy or radiculopathy, lumbar region; M54.9 Dorsalgia, unspecified; M48.55XA Collapsed vertebra, not elsewhere classified, thoracolumbar region, initial encounter for fracture
CPT/HCPCS: 72070; 72100

== ENCOUNTER → 2025-02-25 12:04 | Outpatient (CLI) | payer MEDICARE, SELFPAY ==
[2022-06-05 18:57] VITALS: BMI 29.2
--- NOTE | 2025-02-25 | DI.RAD.S_ITS ---
PROCEDURE: XR DEXA AXIAL SKELETON INDICATIONS: COLLAPSED VERTEBRA COMPARISON: None. FINDINGS: Lumbar Spine: Bone mineral density 1.153 g/cm2, T score 1.0. Left Femoral Neck: Bone mineral density 0.963 g/cm2, T score 1.0. Left Hip: Bone mineral density 1.099 g/cm2, T score 1.3. Fracture Risk Calculation (when applicable): Not applicable. (T score greater or equal to -1.0 to: NORMAL) (T score from -1.1 to -2.4: OSTEOPENIA) (T score less than or equal to -2.5: OSTEOPOROSIS) IMPRESSION: Normal bone mineral density. Follow-up guidelines as follows: Osteoporosis: Consider a repeat DEXA and Vertebral Fracture Assessment (VFA) exam in 2 years or sooner if medically necessary, to reassess this patient's status. Osteopenia: Consider a repeat DEXA in 2-3 years to reassess this patient's status, or if there is a new clinical indication. Normal: Consider a repeat DEXA in 5 years or sooner, or if there is a new clinical indication. All treatment decisions require clinical judgment and consideration of individual patient factors, including patient preferences, comorbidities, previous drug use, risk factors not captured in the FRAX model (e.g., frailty, falls, vitamin D deficiency, increased bone turnover, interval significant decline in bone density ) and possible under- or over-estimation of fracture risk by FRAX. In addition, the NOF Guide recommends that FDA-approved medical therapies be considered in postmenopausal women and men age >= 50 years with a: * Hip or vertebral (clinical or morphometric) fracture * T-score of <=-2.5 at the spine or hip * Ten-year fracture probability by FRAX of >= 3% for hip fracture or >=20% for major osteoporotic fracture. Dictated by: Neto Ren M.D. on 02/25/2025 at 14:51 Approved by: Neto Ren M.D. on 02/25/2025 at 14:52
== END ==
LOC: RAD 12:07
PROVIDERS: PCP Family Medicine; Referring Provider Family Medicine; Visit Provider Family Medicine
DX: M48.54XA Collapsed vertebra, not elsewhere classified, thoracic region, initial encounter for fracture (principal)
CPT/HCPCS: 77080

== ENCOUNTER → 2025-06-02 14:57 | Outpatient (CLI) | payer MEDICARE, SELFPAY ==
[2022-06-05 18:57] VITALS: BMI 29.2
[2025-06-02 16:51] LABS: Iron 106 ug/dL (49-181)
== END ==
PROVIDERS: PCP Family Medicine; Referring Provider Family Medicine; Visit Provider Family Medicine
DX: D64.9 Anemia, unspecified (principal)
CPT/HCPCS: 36415; 83540